=== PATIENT | male | born 1980 | race Caucasian/White ===

== ENCOUNTER 2016-04-11 16:07 | Emergency (ER) | payer BC, OTHER ==
[2016-04-11 16:17] VITALS: BP 176/102; PULSE 92; RESP 18; TEMP 98
[2016-04-11] MEDS ORDERED: IBUPROFEN 800 MG TAB PO STA (16:21)
--- NOTE | 2016-04-11 16:32 | ED ---
Upper Extremity HPI - General Chief Complaint: Extremity Injury, Upper Stated Complaint: Finger Injury Time Seen by Provider: 04/11/16 16:14 Source: patient Mode of arrival: ambulatory Limitations: no limitations - History of Present Illness Initial Comments: Patient is a 35-year-old right-handed white male with medical history significant for diabetes mellitus, hypertension, and diabetic peripheral neuropathy presenting to the emergency department with complaints of pain to his left index finger. Patient states onset of injury was approximately 24 hours ago. 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 Patient currently rates pain 5 out of 10, described as throbbing, constant, exacerbated with movement, somewhat relieved with rest. Patient reports chronic numbness to fingertips. Patient denies previous surgery or trauma to left index finger. 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 Patient denies treatment prior to arrival. No history of fevers , chills, nausea, vomiting, shortness of breath, chest pain, or abdominal pain. - Related Data Home Medications Medication Instructions Recorded Confirmed Insulin NPH Human Isophane 22 units SQ BID 07/14/14 07/16/15 [NovoLIN N] Insulin Regular, Human [NovoLIN R] 6 units SQ AC-TID 07/14/14 07/16/15 Benazepril HCl [Lotensin] 20 mg PO DAILY 07/16/15 07/16/15 Ergocalciferol (Vitamin D2) 50,000 unit PO QMONTH 07/16/15 07/16/15 [Drisdol] Gabapentin 800 mg PO QID 07/16/15 07/16/15 Glucagon Emergency Kit 1 dose IM ONCE PRN 07/16/15 07/16/15 Insulin Regular, Human [NovoLIN R] 0 unit SQ DIRECTED 07/16/15 07/16/15 Omeprazole 20 mg PO DAILY 07/16/15 07/16/15 traZODone HCL [Desyrel] 50 - 100 mg PO HS PRN 07/16/15 07/16/15 Previous Rx's Medication Instructions Recorded Ibuprofen [Motrin] 600 mg PO Q8HR PRN #30 tab 10/06/15 HYDROcodone/APAP 5-325MG [[place] 1 tab PO Q4HR PRN #12 tab 04/11/16 5-325] Allergies Allergy/AdvReac Type Severity Reaction Status Date / Time venom-honey bee Allergy Unknown Verified 04/11/16 16:17 [bee venom (honey bee)] Review of Systems ROS Statement: Those systems with pertinent positive or pertinent negative responses have been documented in the HPI. ROS Other: All systems not noted in ROS Statement are negative. Past Medical History Past Medical History: Diabetes Mellitus, Hyperlipidemia, Hypertension Additional Past Medical History / Comment(s): Multiple vitreous hemorrhages, cataracts, IDDM History of Any Multi-Drug Resistant Organisms: None Reported Additional Past Surgical History / Comment(s): Laser eye surgery; hip surgery Past Psychological History: No Psychological Hx Reported Smoking Status: Current every day smoker Past Alcohol Use History: None Reported Past Drug Use History: None Reported General Exam Limitations: no limitations General appearance: alert, in no apparent distress Head exam: Present: atraumatic, normocephalic, normal inspection Eye exam: Present: normal appearance ENT exam: Present: normal exam, mucous membranes moist Neck exam: Present: normal inspection, full ROM. Absent: tenderness, meningismus, lymphadenopathy Respiratory exam: Present: normal lung sounds bilaterally. Absent: respiratory distress, wheezes, rales, rhonchi, stridor Cardiovascular Exam: Present: regular rate, normal rhythm, normal heart sounds. Absent: systolic murmur, diastolic murmur, rubs, gallop, clicks GI/Abdominal exam: Present: soft, normal bowel sounds. Absent: distended, tenderness, guarding, rebound, rigid Left Elbow exam: Present: normal inspection, full ROM. Absent: tenderness, swelling Forearm Wrist exam: Present: normal inspection, full ROM. Absent: tenderness, swelling Hand Wrist exam: Present: tenderness, swelling, erythema, subungual hematoma, other (Distal phalanx of left index finger erythematous and swollen with small subungual hematoma to proximal nail). Absent: full ROM (Patient unable to bend distal phalanx of second index finger) Neuro motor exam: Present: wrist extension intact, thumb opposition intact, thumb IP flexion intact, thumb adduction intact, fingers 2-5 abduction intact Neurosensory exam: Present: 2-point discrimination, radial nerve intact, ulnar nerve intact, median nerve intact Vascular: Present: normal capillary refill, radial pulse, brachial pulse, ulnar pulse. Absent: vascular compromise, pulse deficit radial art, pulse deficit ulnar art, pulse deficit brachial art Neurological exam: Present: alert, oriented X3, CN II-XII intact Psychiatric exam: Present: normal affect, normal mood Skin exam: Present: warm, dry, intact, normal color. Absent: rash Course Vital Signs 04/11/16 16:14 Temperature 98.0 F Pulse Rate 92 Respiratory 18 Rate Blood Pressure 176/102 O2 Sat by Pulse 100 Oximetry Medical Decision Making - Medical Decision Making 1 mm bony density on the lateral aspect of the tuft of distal phalanx consistent with a tiny chip fracture. Subungual hematoma to left index finger. Subungual hematoma relieved with 18-gauge needle puncture. Finger splint applied to finger fracture. Patient started to follow-up with orthopedic service in a week. Patient agrees with treatment plan. Discharge instructions and return parameters reviewed. - Radiology Data Radiology results: report reviewed X-ray left index finger: 1 mm bony density on the lateral aspect of the tuft of distal phalanx consistent with a tiny chip fracture. No dislocation. Joint spaces are normal. Disposition Clinical Impression: Closed fracture of tuft of distal phalanx of finger, Subungual hematoma of finger of left hand Disposition: HOME SELF-CARE Condition: Good Instructions: Finger Fracture (ED) Additional Instructions: Continue to wear splint and follow-up with orthopedic physician in one week. Continue [place] or Motrin for pain. Please return to the emergency department if symptoms do not improve or get worse. Prescriptions: HYDROcodone/APAP 5-325MG [[place] 5-325] 1 tab PO Q4HR PRN #12 tab PRN Reason: Pain Referrals: Rasta David MD [Primary Care Provider] - 1-2 days Pacheco De La O MD [STAFF PHYSICIAN] - 1-2 days Time of Disposition: 16:50
--- NOTE | 2016-04-11 16:38 | XR ---
EXAMINATION TYPE: XR finger LT DATE OF EXAM: 04/11/2016 4:28 PM COMPARISON: NONE HISTORY: Pain TECHNIQUE: 3 views FINDINGS: There is a 1 mm bony density on the lateral aspect of the tuft of the distal phalanx consis tent with a tiny chip fracture. There is no dislocation. Joint spaces are normal. IMPRESSION: Small chip fracture of the distal phalanx.
== END 2016-04-11 17:30 | disposition home or self-care (01) ==
LOC: EC 16:07
DX: S62.631A Displaced fracture of distal phalanx of left index finger, initial encounter for closed fracture (principal); L60.8 Other nail disorders; W20.8XXA Other cause of strike by thrown, projected or falling object, initial encounter; Y99.0 Civilian activity done for income or pay; E11.42 Type 2 diabetes mellitus with diabetic polyneuropathy; I10 Essential (primary) hypertension; F17.200 Nicotine dependence, unspecified, uncomplicated; Z79.4 Long term (current) use of insulin; Z79.899 Other long term (current) drug therapy
CPT/HCPCS: 11740; 99283

== ENCOUNTER 2016-06-07 05:40 | Emergency (ER) | payer BC, OTHER ==
[2016-06-07] MEDS ORDERED: SODIUM CHLORIDE 0.9% 500 ML IV STA (05:43)
[2016-06-07] MEDS ORDERED: DIPH,PERTUS(ACELL)TETVAC-LF 0.5 ML VIAL IM ONE (05:43)
[2016-06-07] MEDS ORDERED: RX INFO: IV CONTRAST WAS GIVEN 1 EACH MISC MISCELLANE PRN (05:43)
[2016-06-07 05:46] LABS: Glucose,Whole Blood 80 mg/dL (75-99)
[2016-06-07 05:59] LABS: Basophils % (A) 1 %; CH 31.8; CHCM 35.4; Eosinophils # (A) 0.1 k/uL (0-0.7); Eosinophils % (A) 1 %; HCT 48.2 % (39.0-53.0); HDW 2.86; HGB 16.8 gm/dL (13.0-17.5); Luc # (Auto) 0.16; Luc % (Auto) 2; Lymphocytes # (A) 1.5 k/uL (1.0-4.8); Lymphocytes % (A) 22 %; MCH 31.4 pg (25.0-35.0); MCHC 34.9 g/dL (31.0-37.0); MCV 90.2 fL (80.0-100.0); Mean Platelet Volume 7.3; Monocytes # (A) 0.5 k/uL (0-1.0); Monocytes % (A) 7 %; Neutrophils # (A) 4.4 k/uL (1.3-7.7); Neutrophils % (A) 67 %; RBC 5.35 m/uL (4.30-5.90); RDW 13.1 % (11.5-15.5); WBC 6.5 k/uL (3.8-10.6); WBC (Perox) 6.47
[2016-06-07 06:07] LABS: ALT 27 U/L (21-72); AST 30 U/L (17-59); Alkaline Phosphatase 84 U/L (38-126); Amylase 34 U/L (30-110); Anion Gap 14 mmol/L; Blood Urea Nitrogen 12 mg/dL (9-20); Calcium 9.8 mg/dL (8.4-10.2); Carbon Dioxide 28 mmol/L (22-30); Chloride 105 mmol/L (98-107); Non-African American GFR(MDRD) >60 (>60 ml/min/1.73 sqM); Potassium 3.7 mmol/L (3.5-5.1); Sodium 147 mmol/L (137-145); Total Bilirubin 0.6 mg/dL (0.2-1.3); Total Protein 7.5 g/dL (6.3-8.2)
[2016-06-07 06:13] LABS: INR 0.9 (<1.1); Prothrombin Time 9.7 sec (9.0-12.0)
[2016-06-07 06:14] LABS: Alcohol 98 mg/dL; Glucose 42 mg/dL (74-99)
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
[2016-06-07 06:22] LABS: Partial Thromboplastin Time 21.2 sec (22.0-30.0)
[2016-06-07] MEDS ORDERED: THIAMINE 100 MG/ML 2 ML VIAL IM STA (06:23)
[2016-06-07 06:25] LABS: Creatine Kinase 197 U/L (55-170)
[2016-06-07 06:25] LABS: Appearance,Urine Clear (Clear); Bilirubin,Urine Negative (Negative); Glucose,Urine (UA) 4+ (Negative); Ketones,Urine Trace (Negative); Leukocyte Esterase,Urine Negative (Negative); Nitrite,Urine Negative (Negative); PH, Urine 6.5 (5.0-8.0); Particle Count 618; Protein,Urine 1+ (Negative); RBC,Urine <1 /hpf (0-5); Specific Gravity,Urine 1.019 (1.001-1.035); UA Billing (MACRO vs. MICRO) MICRO; WBC,Urine <1 /hpf (0-5)
[2016-06-07] MEDS: DEXTROSE 50%-WATER 50 ML SYRINGE IVP STA ×2 (06:25→07:05)
[2016-06-07] MEDS ORDERED: NALOXONE 0.4 MG/ML 1 ML VIAL IV STA ×2 (06:26→06:27)
[2016-06-07] MEDS ORDERED: NALOXONE 0.4 MG/ML 10 ML VIAL IVP STA (06:27)
[2016-06-07 06:38] LABS: Creatine Kinase MB 1.3 ng/mL (0.0-2.4); Troponin I <0.012 ng/mL (0.000-0.034)
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
[2016-06-07 07:03] LABS: Glucose,Whole Blood 20 mg/dL (75-99)
[2016-06-07 07:39] LABS: Glucose,Whole Blood 84 mg/dL (75-99)
[2016-06-07 08:23] LABS: Glucose,Whole Blood 25 mg/dL (75-99)
[2016-06-07 08:32] LABS: ABG PCO2 49 mmHg (35-45); ABG PH 7.27 (7.35-7.45); ABG PO2 134 mmHg (83-108)
[2016-06-07 08:33] LABS: ABG HCO3 22 mmol/L (21-25); ABG TCO2 23 mmol/L (19-24)
[2016-06-07 08:40] VITALS: BP 101/51; PULSE 100; RESP 14; TEMP 97.4
== END 2016-06-07 08:22 | disposition short-term general hospital (02) ==
LOC: EC 05:40
DX: S06.340A Traumatic hemorrhage of right cerebrum without loss of consciousness, initial encounter (principal); E11.649 Type 2 diabetes mellitus with hypoglycemia without coma; R41.82 Altered mental status, unspecified; R06.82 Tachypnea, not elsewhere classified; R00.0 Tachycardia, unspecified; I51.7 Cardiomegaly; F17.200 Nicotine dependence, unspecified, uncomplicated; I10 Essential (primary) hypertension; Z79.4 Long term (current) use of insulin; Z79.899 Other long term (current) drug therapy; Z91.030 Bee allergy status; Z23 Encounter for immunization; V47.5XXA Car driver injured in collision with fixed or stationary object in traffic accident, initial encounter; Y92.411 Interstate highway as the place of occurrence of the external cause
CPT/HCPCS: 99291; 99292; 31500; 96374; 96375; 96376; 96372; 90471; 36415; 94002; 93005; 86900; 86901; 80053; 82150; 82550; 82553; 82805; 83690; 84484; 85025; 85610; 85730; 86850; 81001; 80306; 80320; 71010; 72170; 72125; 70450; 71260; 74177; 90715; J2310 ×2; J3411; Q9967

== ENCOUNTER 2016-06-24 09:41 | Emergency (ER) | payer BC, OTHER ==
[2016-06-24 10:06] VITALS: BP 144/85; PULSE 105; RESP 18; TEMP 98.2
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
--- NOTE | 2016-06-24 11:15 | XR ---
PA chest x-ray and right RIBS HISTORY: Trauma and pain Frontal view of the chest, 4 views of the right ribs correlated to prior chest x-ray second of June 2016 There is improvement in lung aeration. No evident pneumothorax. No displaced rib fracture evident. No pleural effusion. Cardiomediastinal silhouette within normal limits. Pulmonary vascularity and graham are normal. IMPRESSION: No evident displaced rib fracture, consider follow-up bone scan as indicated if occult fr acture is suspected clinically
--- NOTE | 2016-06-24 11:19 | XR ---
Right shoulder HISTORY: Trauma and pain 3 views of the right shoulder No comparisons There is no evident pneumothorax or pleural effusion. Bone mineralization, joint spaces and alignment are maintained. IMPRESSION: No fracture or dislocation.
--- NOTE | 2016-06-24 11:20 | XR ---
Right humerus HISTORY: Trauma and pain 2 views of the right humerus correlated to right shoulder same date, there are 2 images Bone mineralization, joint spaces and alignment are maintained IMPRESSION: No fracture or dislocation.
== END 2016-06-24 12:00 | disposition home or self-care (01) ==
LOC: EC 09:41
DX: S43.101A Unspecified dislocation of right acromioclavicular joint, initial encounter (principal); S60.511A Abrasion of right hand, initial encounter; R07.89 Other chest pain; I10 Essential (primary) hypertension; E11.9 Type 2 diabetes mellitus without complications; F17.200 Nicotine dependence, unspecified, uncomplicated; Z79.4 Long term (current) use of insulin; Z79.899 Other long term (current) drug therapy; Z91.030 Bee allergy status; V18.4XXA Pedal cycle driver injured in noncollision transport accident in traffic accident, initial encounter; Y92.410 Unspecified street and highway as the place of occurrence of the external cause; Y93.55 Activity, bike riding
CPT/HCPCS: 99283

== ENCOUNTER 2016-08-12 16:45 | Emergency (ER) | payer BC, OTHER ==
[2016-08-12 17:18] VITALS: BP 161/88; PULSE 112; RESP 20; TEMP 98.3
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
--- NOTE | 2016-08-12 18:13 | XR ---
EXAMINATION TYPE: XR hand complete RT DATE OF EXAM: 08/12/2016 COMPARISON: NONE HISTORY: Pain TECHNIQUE: 3 views FINDINGS: I see no fracture nor dislocation. Joint spaces are fairly normal. There are no erosions. The metacar pals are intact. IMPRESSION: Negative right hand exam. There is slight deformity of the base of the distal phalanx of the little finger that could relate to an old healed fracture.
== END 2016-08-12 18:12 | disposition home or self-care (01) ==
LOC: EC 16:45
DX: S60.221A Contusion of right hand, initial encounter (principal); E11.9 Type 2 diabetes mellitus without complications; E78.5 Hyperlipidemia, unspecified; I10 Essential (primary) hypertension; F17.200 Nicotine dependence, unspecified, uncomplicated; Z79.4 Long term (current) use of insulin; Z79.899 Other long term (current) drug therapy; Z91.030 Bee allergy status; W51.XXXA Accidental striking against or bumped into by another person, initial encounter
CPT/HCPCS: 99283

== ENCOUNTER 2017-10-27 20:06 | Emergency (ER) | payer OTHER ==
[2017-10-27 20:26] LABS: Glucose,Whole Blood 42 mg/dL (75-99)
[2017-10-27 20:26] LABS: Glucose,Whole Blood 51 mg/dL (75-99)
[2017-10-27] MEDS ORDERED: DEXTROSE 50%-WATER 50 ML SYRINGE IVP STA ×2 (20:26→23:44)
[2017-10-27 20:39] LABS: Basophils # (A) 0.1 k/uL (0-0.2); Basophils % (A) 0 %; Eosinophils # (A) 0.1 k/uL (0-0.7); Eosinophils % (A) 0 %; HCT 44.2 % (39.0-53.0); HGB 14.5 gm/dL (13.0-17.5); Lymphocytes # (A) 3.1 k/uL (1.0-4.8); Lymphocytes % (A) 21 %; MCH 30.1 pg (25.0-35.0); MCHC 32.9 g/dL (31.0-37.0); MCV 91.4 fL (80.0-100.0); Mean Platelet Volume 7.2; Monocytes # (A) 0.9 k/uL (0-1.0); Monocytes % (A) 7 %; Neutrophils % (A) 70 %; Platelet Count 318 k/uL (150-450); RBC 4.83 m/uL (4.30-5.90); RDW 13.4 % (11.5-15.5); WBC 14.3 k/uL (3.8-10.6)
[2017-10-27 20:44] LABS: Glucose,Whole Blood 163 mg/dL (75-99)
[2017-10-27] MEDS ORDERED: MORPHINE SULFATE 4 MG/ML SYRINGE IVP STA ×2 (20:47→21:43)
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
[2017-10-27 20:51] LABS: ALT 45 U/L (21-72); AST 41 U/L (17-59); Albumin 4.8 g/dL (3.5-5.0); Alcohol <10 mg/dL; Alkaline Phosphatase 61 U/L (38-126); Anion Gap 12 mmol/L; Blood Urea Nitrogen 25 mg/dL (9-20); Calcium 10.5 mg/dL (8.4-10.2); Carbon Dioxide 26 mmol/L (22-30); Chloride 101 mmol/L (98-107); Lipase 21 U/L (23-300); Potassium 4.3 mmol/L (3.5-5.1); Sodium 139 mmol/L (137-145); Total Bilirubin 0.6 mg/dL (0.2-1.3); Total Protein 7.4 g/dL (6.3-8.2)
[2017-10-27 20:52] LABS: Creatine Kinase 227 U/L (55-170)
[2017-10-27 20:57] LABS: Prothrombin Time 9.8 sec (9.0-12.0)
[2017-10-27] MEDS ORDERED: ceFAZolin IN SWFI 2 GM/20 ML SYRINGE IVP STA (20:59)
[2017-10-27 21:00] LABS: Glucose 46 mg/dL (74-99)
[2017-10-27] MEDS ORDERED: DEXTROSE 5%-0.45% NACL 1,000 ML IV ONE (21:00)
[2017-10-27 21:05] LABS: Creatine Kinase MB 2.1 ng/mL (0.0-2.4); Troponin I <0.012 ng/mL (0.000-0.034)
[2017-10-27 21:17] LABS: Partial Thromboplastin Time 19.2 sec (22.0-30.0)
[2017-10-27 21:53] LABS: Glucose,Whole Blood 104 mg/dL (75-99)
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
--- NOTE | 2017-10-27 22:23 | XR ---
EXAMINATION TYPE: XR elbow complete RT DATE OF EXAM: 10/27/2017 COMPARISON: NONE HISTORY: Elbow pain TECHNIQUE: 5 views FINDINGS: I see no fracture nor dislocation. Joint spaces are fairly normal. There is no sign of elbo w joint effusion. IMPRESSION: Negative right elbow exam.
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
[2017-10-27] MEDS ORDERED: SODIUM CHLORIDE 0.9% 1,000 ML IV STA (23:07)
[2017-10-27] MEDS ORDERED: SODIUM CHLORIDE 0.9% 500 ML 500 ML IV STA (23:07)
[2017-10-27] MEDS ORDERED: HYDROcodone/APAP 5-325MG 1 EACH TAB PO STA (23:08)
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
[2017-10-27 23:21] LABS: Glucose,Whole Blood 53 mg/dL (75-99)
[2017-10-28 00:11] LABS: Glucose,Whole Blood 118 mg/dL (75-99)
[2017-10-28 00:11] LABS: Glucose,Whole Blood 59 mg/dL (75-99)
[2017-10-28 00:11] LABS: Glucose,Whole Blood 51 mg/dL (75-99)
[2017-10-28 00:13] LABS: Amylase 54 U/L (30-110)
[2017-10-28 00:20] VITALS: BP 115/59; PULSE 128; RESP 18; TEMP 97.9
== END 2017-10-28 00:06 | disposition home or self-care (01) ==
LOC: EC 20:06
DX: S40.211A Abrasion of right shoulder, initial encounter (principal); M79.601 Pain in right arm; E78.5 Hyperlipidemia, unspecified; I10 Essential (primary) hypertension; E11.36 Type 2 diabetes mellitus with diabetic cataract; F17.200 Nicotine dependence, unspecified, uncomplicated; Z79.4 Long term (current) use of insulin; Z79.899 Other long term (current) drug therapy; Z91.030 Bee allergy status; Z53.20 Procedure and treatment not carried out because of patient's decision for unspecified reasons; V20.4XXA Motorcycle driver injured in collision with pedestrian or animal in traffic accident, initial encounter; Y92.410 Unspecified street and highway as the place of occurrence of the external cause
CPT/HCPCS: 99285 ×2; 96374 ×2; 96375 ×3; 96376 ×3; 96361 ×2; 36415; 93005; 86900; 86901; 80053; 82150; 82550; 82553; 83690; 84484; 85025; 85610; 85730; 86850; 73562; 72170; 73030; 73080; 71045; 72125; 70450; 71260; 74177; L0120; G0480; J2270; J0690; Q9967; 80320

== ENCOUNTER 2017-10-29 10:45 | Inpatient (IN) | payer OTHER ==
[2017-10-29] MEDS ORDERED: VANCOMYCIN IV PER PHARMACY 1 EACH MISC MISCELLANE PRN ×2 (11:29→15:49)
[2017-10-29] MEDS ORDERED: PIPERACILLIN-TAZOBACTAM 3.375 GM in DEXTROSE/WATER 1 50ML.BAG IVPB STA (11:31)
[2017-10-29] MEDS ORDERED: ONDANSETRON 4 MG/2 ML VIAL IVP STA (11:32)
[2017-10-29] MEDS ORDERED: MORPHINE SULFATE 2 MG/ML SYRINGE IVP STA (11:32)
[2017-10-29] MEDS ORDERED: SODIUM CHLORIDE 0.9% 1,000 ML IV STA ×2 (11:32)
[2017-10-29] MEDS ORDERED: DIPH,PERTUS(ACELL)TETVAC-LF 0.5 ML VIAL IM ONE (11:39)
[2017-10-29] MEDS ORDERED: VANCOMYCIN 1,750 MG in SODIUM CHLORIDE 0.9% 500 ML IVPB ONE (12:00)
[2017-10-29 12:12] LABS: Basophils % (A) 0 %; Eosinophils % (A) 0 %; HCT 44.9 % (39.0-53.0); HGB 14.4 gm/dL (13.0-17.5); Lymphocytes # (A) 1.1 k/uL (1.0-4.8); Lymphocytes % (A) 11 %; MCH 29.9 pg (25.0-35.0); MCHC 32.2 g/dL (31.0-37.0); Mean Platelet Volume 7.2; Monocytes # (A) 0.6 k/uL (0-1.0); Monocytes % (A) 6 %; Neutrophils # (A) 8.2 k/uL (1.3-7.7); Neutrophils % (A) 81 %; Platelet Count 215 k/uL (150-450); RBC 4.83 m/uL (4.30-5.90); RDW 13.1 % (11.5-15.5)
[2017-10-29 12:22] LABS: ALT 35 U/L (21-72); AST 32 U/L (17-59); Albumin 4.9 g/dL (3.5-5.0); Alkaline Phosphatase 70 U/L (38-126); Amylase 46 U/L (30-110); Anion Gap 11 mmol/L; Blood Urea Nitrogen 25 mg/dL (9-20); Calcium 9.8 mg/dL (8.4-10.2); Carbon Dioxide 27 mmol/L (22-30); Chloride 99 mmol/L (98-107); Glucose 154 mg/dL (74-99); Lipase <10 U/L (23-300); Potassium 4.9 mmol/L (3.5-5.1); Sodium 137 mmol/L (137-145); Total Protein 7.7 g/dL (6.3-8.2)
[2017-10-29 12:32] LABS: Appearance,Urine Clear (Clear); Bilirubin,Urine Negative (Negative); Blood,Urine Negative (Negative); Color,Urine Yellow; Glucose,Urine (UA) 2+ (Negative); Leukocyte Esterase,Urine Negative (Negative); Mucus,Urine Rare /hpf; Nitrite,Urine Negative (Negative); PH, Urine 5.5 (5.0-8.0); Protein,Urine 1+ (Negative); RBC,Urine <1 /hpf (0-5); Specific Gravity,Urine 1.027 (1.001-1.035); WBC,Urine 1 /hpf (0-5)
[2017-10-29 12:33] LABS: Ketones,Urine 2+ (Negative)
--- NOTE | 2017-10-29 12:52 | XR ---
Right forearm and right hand HISTORY: Pain, swelling and infection 2 views of the right forearm, 3 views of the right hand submitted. No comparisons Bone mineralization, joint spaces and alignment are maintained. No radiopaque foreign body. Soft tiss ue swelling suspected along the forearm. No evident periostitis to suggest osteomyelitis. Probable pr ominent vein noted within the soft tissues at the level of the proximal forearm. IMPRESSION: Correlate for cellulitis, possible dilated vein.
[2017-10-29] MEDS ORDERED: SODIUM CHLORIDE 0.9% 1,000 ML IV ONE (14:18)
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
[2017-10-29] MEDS ORDERED: GLUCAGON EMERGENCY 1 MG KIT IM PRN (14:20)
[2017-10-29] MEDS ORDERED: MORPHINE SULFATE 4 MG/ML SYRINGE IVP PRN (14:22)
[2017-10-29] MEDS ORDERED: HYDROcodone/APAP 5-325MG 1 EACH TAB PO PRN (15:44)
[2017-10-29] MEDS ORDERED: ACETAMINOPHEN TAB 500 MG TAB PO PRN (15:44)
[2017-10-29] MEDS ORDERED: TEMAZEPAM 15 MG CAP PO PRN (15:44)
[2017-10-29] MEDS ORDERED: ALPRAZolam 0.25 MG TAB PO PRN (15:44)
[2017-10-29 16:50] LABS: Glucose,Whole Blood 133 mg/dL (75-99)
[2017-10-29] MEDS: MORPHINE ORAL SOLN 10 MG/5 ML CUP PO PRN ×2 (17:04→22:26)
[2017-10-29] MEDS: GABAPENTIN 400 MG CAP PO SCH ×2 (18:08→22:01)
[2017-10-29 18:12] LABS: Glucose,Whole Blood 106 mg/dL (75-99)
[2017-10-29] MEDS: INSULIN ASPART 100 UNIT/ML 1 ML 10 ML VIAL SQ SCH ×3 (18:15→21:48)
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
--- NOTE | 2017-10-29 18:26 | CT ---
EXAMINATION TYPE: CT upper extremity RT w con DATE OF EXAM: 10/29/2017 COMPARISON: None HISTORY: Right elbow swelling and redness CT DLP: 338 mGycm Automated exposure control for dose reduction was used. CONTRAST: Performed with IV Contrast, patient injected with 100 mL of Isovue 300. FINDINGS: Multiple axial sections were obtained from the distal humerus to the wrist joint with no contrast. FINDINGS: The elbow joint is intact. There is no sign of elbow joint effusion. The radius and ulna appear intac t. There is no evidence of a fracture. Carpal bones appear intact. There is subcutaneous edema around the elbow and lower humerus. I see no discrete fluid collection. There is more soft tissue swelling posteriorly. IMPRESSION: SUBCUTANEOUS EDEMA AROUND THE ELBOW AND DISTAL HUMERUS. THERE IS FLUID POSTERIORLY THAT COULD RELATE TO OLECRANON BURSITIS. I WOULD ALSO CONSIDER CELLULITIS. NO ABSCESS SEEN. NO FRACTURE. NO EVIDENCE OF OSTEOMYELITIS.
[2017-10-29] MEDS: PIPERACILLIN-TAZOBACTAM 3.375 GM in DEXTROSE/WATER 1 50ML.BAG IVPB SCH (19:44)
[2017-10-29 21:04] LABS: Glucose,Whole Blood 68 mg/dL (75-99)
[2017-10-29 21:41] LABS: Glucose,Whole Blood 57 mg/dL (75-99)
[2017-10-29] MEDS: HEPARIN SODIUM,PORCINE 5,000 UNIT/ML 1 ML VIAL SQ SCH (22:01)
[2017-10-29] MEDS: traMADol 50 MG TAB PO SCH (22:01)
[2017-10-29 22:12] LABS: Glucose,Whole Blood 69 mg/dL (75-99)
[2017-10-29 22:31] LABS: Glucose,Whole Blood 112 mg/dL (75-99)
[2017-10-30 01:03] LABS: Hemoglobin A1C 7.8 % (4.0-6.0)
[2017-10-30] MEDS: MORPHINE ORAL SOLN 10 MG/5 ML CUP PO PRN ×5 (03:30→23:06)
[2017-10-30] MEDS: PIPERACILLIN-TAZOBACTAM 3.375 GM in DEXTROSE/WATER 1 50ML.BAG IVPB SCH ×3 (03:30→19:27)
[2017-10-30 03:52] LABS: Glucose,Whole Blood 216 mg/dL (75-99)
[2017-10-30] MEDS ORDERED: PANTOPRAZOLE 40 MG TABLET PO SCH (07:30)
[2017-10-30 07:32] LABS: Basophils % (A) 0 %; Eosinophils # (A) 0.1 k/uL (0-0.7); Eosinophils % (A) 1 %; HCT 34.5 % (39.0-53.0); HGB 12.1 gm/dL (13.0-17.5); Lymphocytes # (A) 1.5 k/uL (1.0-4.8); Lymphocytes % (A) 21 %; MCH 32.5 pg (25.0-35.0); MCV 92.7 fL (80.0-100.0); Mean Platelet Volume 7.2; Monocytes # (A) 0.5 k/uL (0-1.0); Monocytes % (A) 7 %; Neutrophils % (A) 69 %; Platelet Count 181 k/uL (150-450); RBC 3.73 m/uL (4.30-5.90); RDW 12.9 % (11.5-15.5); WBC 7.3 k/uL (3.8-10.6)
[2017-10-30 07:39] LABS: Glucose,Whole Blood 230 mg/dL (75-99)
[2017-10-30 07:46] LABS: Anion Gap 9 mmol/L; Blood Urea Nitrogen 20 mg/dL (9-20); Calcium 8.7 mg/dL (8.4-10.2); Carbon Dioxide 23 mmol/L (22-30); Chloride 102 mmol/L (98-107); Glucose 219 mg/dL (74-99); Potassium 5.1 mmol/L (3.5-5.1); Sodium 134 mmol/L (137-145)
[2017-10-30] MEDS: INSULIN ASPART 100 UNIT/ML 1 ML 10 ML VIAL SQ SCH ×7 (07:58→20:48)
[2017-10-30] MEDS: VANCOMYCIN 1,500 MG in SODIUM CHLORIDE 0.9% 250 ML IVPB SCH ×5 (08:07→23:30)
[2017-10-30] MEDS: GABAPENTIN 400 MG CAP PO SCH ×4 (08:08→21:58)
[2017-10-30] MEDS: FAMOTIDINE 20 MG TAB PO SCH (08:08)
[2017-10-30] MEDS: HEPARIN SODIUM,PORCINE 5,000 UNIT/ML 1 ML VIAL SQ SCH ×2 (08:08→20:46)
[2017-10-30] MEDS: ATORVASTATIN 80 MG TAB PO SCH (08:08)
[2017-10-30] MEDS: traMADol 50 MG TAB PO SCH ×2 (08:09→20:47)
[2017-10-30] MEDS: LISINOPRIL 20 MG TAB PO SCH (08:09)
[2017-10-30] MEDS: INSULIN DETEMIR 100 UNIT/ML 10 ML VIAL SQ SCH (09:28)
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
[2017-10-30 12:24] LABS: Glucose,Whole Blood 41 mg/dL (75-99)
[2017-10-30 12:59] LABS: Glucose,Whole Blood 76 mg/dL (75-99)
[2017-10-30 17:17] LABS: Glucose,Whole Blood 175 mg/dL (75-99)
[2017-10-30 20:33] LABS: Glucose,Whole Blood 72 mg/dL (75-99)
[2017-10-30] MEDS ORDERED: IBUPROFEN 800 MG TAB PO PRN (20:33)
[2017-10-30 22:44] LABS: Glucose,Whole Blood 85 mg/dL (75-99)
[2017-10-30] MEDS ORDERED: VANCOMYCIN TROUGH DUE 1 EACH MISC MISCELLANE ONE (23:00)
[2017-10-31] MEDS: PIPERACILLIN-TAZOBACTAM 3.375 GM in DEXTROSE/WATER 1 50ML.BAG IVPB SCH ×3 (03:22→19:48)
[2017-10-31 07:19] LABS: Glucose,Whole Blood 130 mg/dL (75-99)
[2017-10-31] MEDS: INSULIN ASPART 100 UNIT/ML 1 ML 10 ML VIAL SQ SCH ×8 (07:29→21:43)
[2017-10-31] MEDS: VANCOMYCIN 1,500 MG in SODIUM CHLORIDE 0.9% 250 ML IVPB SCH ×3 (08:12→23:19)
[2017-10-31] MEDS: GABAPENTIN 400 MG CAP PO SCH ×4 (08:13→21:44)
[2017-10-31] MEDS: HEPARIN SODIUM,PORCINE 5,000 UNIT/ML 1 ML VIAL SQ SCH ×2 (08:13→21:43)
[2017-10-31] MEDS: ATORVASTATIN 80 MG TAB PO SCH (08:13)
[2017-10-31] MEDS: LISINOPRIL 20 MG TAB PO SCH (08:13)
[2017-10-31] MEDS: FAMOTIDINE 20 MG TAB PO SCH (08:13)
[2017-10-31] MEDS: INSULIN DETEMIR 100 UNIT/ML 10 ML VIAL SQ SCH (08:16)
[2017-10-31] MEDS: MORPHINE ORAL SOLN 10 MG/5 ML CUP PO PRN ×5 (08:16→23:19)
[2017-10-31] MEDS: traMADol 50 MG TAB PO SCH ×2 (08:17→21:44)
[2017-10-31 08:38] LABS: Basophils % (A) 1 %; Eosinophils # (A) 0.1 k/uL (0-0.7); Eosinophils % (A) 1 %; HCT 38.7 % (39.0-53.0); HGB 12.9 gm/dL (13.0-17.5); Lymphocytes # (A) 1.3 k/uL (1.0-4.8); Lymphocytes % (A) 20 %; MCHC 33.4 g/dL (31.0-37.0); MCV 92.6 fL (80.0-100.0); Mean Platelet Volume 7.2; Monocytes # (A) 0.4 k/uL (0-1.0); Monocytes % (A) 6 %; Neutrophils # (A) 4.7 k/uL (1.3-7.7); Neutrophils % (A) 72 %; Platelet Count 217 k/uL (150-450); RBC 4.18 m/uL (4.30-5.90); RDW 12.7 % (11.5-15.5); WBC 6.6 k/uL (3.8-10.6)
[2017-10-31 08:52] LABS: Anion Gap 11 mmol/L; Blood Urea Nitrogen 15 mg/dL (9-20); Calcium 9.3 mg/dL (8.4-10.2); Carbon Dioxide 26 mmol/L (22-30); Chloride 100 mmol/L (98-107); Glucose 153 mg/dL (74-99); Potassium 4.7 mmol/L (3.5-5.1); Sodium 137 mmol/L (137-145)
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
[2017-10-31 12:00] LABS: Glucose,Whole Blood 81 mg/dL (75-99)
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
[2017-10-31 17:02] LABS: Glucose,Whole Blood 161 mg/dL (75-99)
[2017-10-31 20:14] LABS: Glucose,Whole Blood 44 mg/dL (75-99)
[2017-10-31 21:43] LABS: Glucose,Whole Blood 155 mg/dL (75-99)
[2017-11-01] MEDS: PIPERACILLIN-TAZOBACTAM 3.375 GM in DEXTROSE/WATER 1 50ML.BAG IVPB SCH ×3 (04:30→19:27)
[2017-11-01] MEDS: MORPHINE ORAL SOLN 10 MG/5 ML CUP PO PRN ×4 (04:30→19:52)
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
[2017-11-01 07:02] LABS: Basophils % (A) 1 %; Eosinophils # (A) 0.1 k/uL (0-0.7); Eosinophils % (A) 2 %; HCT 37.5 % (39.0-53.0); HGB 12.1 gm/dL (13.0-17.5); Lymphocytes # (A) 1.4 k/uL (1.0-4.8); Lymphocytes % (A) 21 %; MCHC 32.2 g/dL (31.0-37.0); MCV 93.1 fL (80.0-100.0); Mean Platelet Volume 6.9; Monocytes # (A) 0.5 k/uL (0-1.0); Monocytes % (A) 7 %; Neutrophils # (A) 4.8 k/uL (1.3-7.7); Neutrophils % (A) 68 %; Platelet Count 205 k/uL (150-450); RBC 4.03 m/uL (4.30-5.90); RDW 12.7 % (11.5-15.5)
[2017-11-01 07:02] LABS: Glucose,Whole Blood 186 mg/dL (75-99)
[2017-11-01 07:14] LABS: Anion Gap 8 mmol/L; Blood Urea Nitrogen 15 mg/dL (9-20); Calcium 9.1 mg/dL (8.4-10.2); Carbon Dioxide 27 mmol/L (22-30); Chloride 101 mmol/L (98-107); Glucose 192 mg/dL (74-99); Potassium 4.8 mmol/L (3.5-5.1); Sodium 136 mmol/L (137-145)
[2017-11-01] MEDS: INSULIN ASPART 100 UNIT/ML 1 ML 10 ML VIAL SQ SCH ×8 (07:48→18:18)
[2017-11-01] MEDS: INSULIN DETEMIR 100 UNIT/ML 10 ML VIAL SQ SCH (07:49)
[2017-11-01] MEDS: VANCOMYCIN 1,500 MG in SODIUM CHLORIDE 0.9% 250 ML IVPB SCH ×3 (09:09→23:18)
[2017-11-01] MEDS: FAMOTIDINE 20 MG TAB PO SCH (09:09)
[2017-11-01] MEDS: LISINOPRIL 20 MG TAB PO SCH (09:10)
[2017-11-01] MEDS: HEPARIN SODIUM,PORCINE 5,000 UNIT/ML 1 ML VIAL SQ SCH ×2 (09:10→21:35)
[2017-11-01] MEDS: GABAPENTIN 400 MG CAP PO SCH ×4 (09:10→21:36)
[2017-11-01] MEDS: ATORVASTATIN 80 MG TAB PO SCH ×2 (09:11→09:24)
[2017-11-01] MEDS: traMADol 50 MG TAB PO SCH ×2 (09:22→21:35)
[2017-11-01 10:33] LABS: Glucose,Whole Blood 36 mg/dL (75-99)
[2017-11-01 10:37] LABS: Glucose,Whole Blood 36 mg/dL (75-99)
[2017-11-01 10:53] LABS: Glucose,Whole Blood 50 mg/dL (75-99)
[2017-11-01 11:10] LABS: Glucose,Whole Blood 35 mg/dL (75-99)
[2017-11-01 12:29] LABS: Glucose,Whole Blood 64 mg/dL (75-99)
[2017-11-01 15:36] LABS: Glucose,Whole Blood 292 mg/dL (75-99)
[2017-11-01 17:52] LABS: Glucose,Whole Blood 322 mg/dL (75-99)
[2017-11-02 00:22] LABS: Glucose,Whole Blood 389 mg/dL (75-99)
[2017-11-02] MEDS ORDERED: INSULIN ASPART 100 UNIT/ML 1 ML 10 ML VIAL SQ ONE (00:36)
[2017-11-02] MEDS: PIPERACILLIN-TAZOBACTAM 3.375 GM in DEXTROSE/WATER 1 50ML.BAG IVPB SCH (04:25)
[2017-11-02] MEDS ORDERED: VANCOMYCIN TROUGH DUE 1 EACH MISC MISCELLANE ONE (07:00)
[2017-11-02 07:21] LABS: Glucose,Whole Blood 332 mg/dL (75-99)
[2017-11-02 07:26] LABS: Basophils % (A) 1 %; Eosinophils # (A) 0.1 k/uL (0-0.7); Eosinophils % (A) 2 %; HCT 37.4 % (39.0-53.0); HGB 12.5 gm/dL (13.0-17.5); Lymphocytes # (A) 1.2 k/uL (1.0-4.8); Lymphocytes % (A) 16 %; MCHC 33.6 g/dL (31.0-37.0); MCV 92.4 fL (80.0-100.0); Mean Platelet Volume 7.3; Monocytes # (A) 0.6 k/uL (0-1.0); Monocytes % (A) 8 %; Neutrophils # (A) 5.5 k/uL (1.3-7.7); Neutrophils % (A) 72 %; Platelet Count 225 k/uL (150-450); RBC 4.04 m/uL (4.30-5.90); RDW 12.9 % (11.5-15.5); WBC 7.6 k/uL (3.8-10.6)
[2017-11-02 07:36] LABS: Anion Gap 12 mmol/L; Blood Urea Nitrogen 19 mg/dL (9-20); Calcium 9.2 mg/dL (8.4-10.2); Carbon Dioxide 25 mmol/L (22-30); Chloride 97 mmol/L (98-107); Glucose 323 mg/dL (74-99); Potassium 5.4 mmol/L (3.5-5.1); Sodium 134 mmol/L (137-145)
[2017-11-02] MEDS: INSULIN ASPART 100 UNIT/ML 1 ML 10 ML VIAL SQ SCH ×2 (08:30→08:31)
[2017-11-02] MEDS: INSULIN DETEMIR 100 UNIT/ML 10 ML VIAL SQ SCH (08:32)
[2017-11-02] MEDS: GABAPENTIN 400 MG CAP PO SCH (09:22)
[2017-11-02] MEDS: HEPARIN SODIUM,PORCINE 5,000 UNIT/ML 1 ML VIAL SQ SCH (09:23)
[2017-11-02] MEDS: FAMOTIDINE 20 MG TAB PO SCH (09:25)
[2017-11-02] MEDS: traMADol 50 MG TAB PO SCH (09:26)
[2017-11-02] MEDS: ATORVASTATIN 80 MG TAB PO SCH (09:28)
[2017-11-02] MEDS: LISINOPRIL 20 MG TAB PO SCH (09:30)
[2017-11-02] MEDS: VANCOMYCIN 1,500 MG in SODIUM CHLORIDE 0.9% 250 ML IVPB SCH (09:33)
[2017-11-02] MEDS: MORPHINE ORAL SOLN 10 MG/5 ML CUP PO PRN (09:39)
[2017-11-02 11:06] VITALS: BP 125/80; RESP 14; TEMP 98.3
[2017-11-02 11:36] VITALS: PULSE 98
--- NOTE | 2017-11-02 12:41 | PN ---
PROGRESS NOTE DATE OF SERVICE: 11/02/2017 REASON FOR FOLLOWUP: Right upper extremity cellulitis. INTERVAL HISTORY: The patient is currently afebrile. He is breathing comfortably. Denies having any chest pain, shortness of breath or cough. No abdominal pain. Overall swelling right has improved. PHYSICAL EXAMINATION: On examination, blood pressure is 125/80 with a pulse of 112, temperature 98.3. He is 95% on room air. General description is a middle-aged male lying in bed in no distress. RESPIRATORY SYSTEM: Unlabored breathing, clear to auscultation anteriorly. HEART: S1, S2, regular rate and rhythm. ABDOMEN: Soft, no tenderness. Right arm swelling has improved, no drainage. LABS: White count 7.6. BUN of 19, creatinine 1.02. DIAGNOSTIC IMPRESSION AND PLAN: Patient with right upper extremity cellulitis. The patient did have diffuse swelling and redness. Culture has been negative. Plan to finish therapy with oral Keflex 500 mg q.i.d. for 10 days with close outpatient followup. MMODL / IJN: [id number] /
[2017-11-02] MEDS ORDERED: CEPHALEXIN 250 MG CAP PO SCH (13:00)
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
--- NOTE | 2017-11-02 20:29 | PN ---
PROGRESS NOTE DATE OF SERVICE: 11/01/2017 CHIEF COMPLAINT: Infected abrasions right arm and uncontrolled insulin-dependent diabetes mellitus. HISTORY OF PRESENT ILLNESS: This gentleman is feeling well and has had no further difficulty with infection regarding abrasions right arm. Blood sugars were uncontrolled. The patient is being very uncooperative and insists on deciding when his Accu-Cheks will be done and how much insulin he will get. PHYSICAL EXAM: Chest is clear. Cardiac exam is normal. Abdomen is soft, nontender. IMPRESSION: 1. Infected abrasion in the right arm. 2. Uncontrolled diabetes. PLAN: Increase activity and if the arm continues to improve, he will go home tomorrow. MMODL / IJN: [id number] /
[2017-11-02] MEDS ORDERED: VANCOMYCIN 1,500 MG in SODIUM CHLORIDE 0.9% 250 ML IVPB SCH (21:00)
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
== END 2017-11-02 11:55 | disposition home or self-care (01) | DRG 603 ==
LOC: EC 10:45 → 5MS5E 14:18
PROVIDERS: ADMIT Family Medicine; ATTEND Family Medicine
DX: L03.113 Cellulitis of right upper limb (principal); S41.111D Laceration without foreign body of right upper arm, subsequent encounter; V00-Y99 External causes of morbidity; S80.212D Abrasion, left knee, subsequent encounter; S80.211D Abrasion, right knee, subsequent encounter; S60.511D Abrasion of right hand, subsequent encounter; S50.312D Abrasion of left elbow, subsequent encounter; F17.200 Nicotine dependence, unspecified, uncomplicated; E10.40 Type 1 diabetes mellitus with diabetic neuropathy, unspecified; E10.65 Type 1 diabetes mellitus with hyperglycemia; E78.5 Hyperlipidemia, unspecified; I10 Essential (primary) hypertension; K21.9 Gastro-esophageal reflux disease without esophagitis; M70.21 Olecranon bursitis, right elbow; Y93.55 Activity, bike riding; Z79.4 Long term (current) use of insulin; M19.90 Unspecified osteoarthritis, unspecified site; Z81.1 Family history of alcohol abuse and dependence; Z98.42 Cataract extraction status, left eye; Z79.899 Other long term (current) drug therapy; Z91.030 Bee allergy status
CPT/HCPCS: 36415; 80048; 80053; 80202; 81001; 82150; 83036; 83605; 83690; 85025; 87040; 87070; 87075; 87086; 87205; 90471; 90715; 96365; 96366; 96375; 99284

== ENCOUNTER 2018-06-03 17:32 | Emergency (ER) | payer OTHER ==
[2018-06-03 17:41] VITALS: BP 109/64; PULSE 105; RESP 18; TEMP 98.3
[2018-06-03] MEDS ORDERED: PROPARACAINE 0.5% OPHTH DROPS 15 ML BTL BOTH EYES STA (18:32)
--- NOTE | 2018-06-03 19:03 | ED ---
Eye Problem HPI - General Chief complaint: Eye Problems Stated complaint: chemical in eye-[facility] Time Seen by Provider: 06/03/18 17:46 Source: patient Mode of arrival: ambulatory Limitations: no limitations - History of Present Illness Initial comments: 38yo male presenting for chief complaint of exposure to chemicals. 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 Patient states he left the shift, rinsing his eyes when he noticed burning. Patient states he fell asleep and waking up around 3 PM this afternoon. Patient states he had rinsed his eyes for 30 minutes at a time. Patient states he had broken up his eyes were cloudy as though there was no compartment. He can see the fogginess of his cornea. He states there was a mild burning sensation and he had photophobia. Patient states his only history as far as his eyes is cataract removal of the left. Remaining review of system negative patient denies any deep pain, headache, nausea, vomiting. - Related Data Home Medications Medication Instructions Recorded Confirmed Gabapentin 800 mg PO QID 07/16/15 10/29/17 Glucagon Emergency Kit 1 mg IM ONCE PRN 07/16/15 10/29/17 Benazepril HCl 40 mg PO DAILY 06/24/16 10/29/17 INSULIN ASPART (NovoLOG) [NovoLOG 10 unit SQ AC-TID 06/24/16 10/29/17 (formulary)] Insulin Glargine [Lantus] 80 unit SQ DAILY 06/24/16 10/29/17 Atorvastatin [Lipitor] 80 mg PO DAILY 08/12/16 10/29/17 Omeprazole [PriLOSEC] 20 mg PO DAILY 08/12/16 10/29/17 INSULIN ASPART (NovoLOG) [NovoLOG See Protocol SQ AC-TID 10/29/17 10/29/17 (formulary)] traMADol HCL [Ultram] 50 mg PO BID 10/29/17 10/29/17 Previous Rx's Medication Instructions Recorded Cephalexin [Keflex] 500 mg PO Q6HR #40 cap 11/02/17 INSULIN ASPART (NovoLOG) [NovoLOG 4 unit SQ AC-TID vial 08/28/18 (formulary)] Artificial Tears-Hypromellose 1 drops BOTH EYES TID 7 Days #1 06/03/18 [Artificial Tear Drops] bottle Vvcntgvx-Ggteuehvp-Kfnoosef 2 drops BOTH EYES Q6H 7 Days #1 06/03/18 [Maxitrol Ophth Susp] bottle Allergies Allergy/AdvReac Type Severity Reaction Status Date / Time venom-honey bee Allergy Unknown Verified 06/03/18 17:42 [bee venom (honey bee)] Review of Systems ROS Statement: Those systems with pertinent positive or pertinent negative responses have been documented in the HPI. ROS Other: All systems not noted in ROS Statement are negative. Past Medical History Past Medical History: Diabetes Mellitus, GERD/Reflux, Hyperlipidemia, Hypertension Additional Past Medical History / Comment(s): Multiple vitreous hemorrhages, rt cataract, IDDM, pt stated he thinks he had a pne vaccine but proposal writer unable to verify date at time of this admit History of Any Multi-Drug Resistant Organisms: None Reported Past Surgical History: Orthopedic Surgery Additional Past Surgical History / Comment(s): Laser eye surgery;lt eye vitrectomy, lt cataract, hip surgery-[address] Past Anesthesia/Blood Transfusion Reactions: No Reported Reaction Past Psychological History: No Psychological Hx Reported Smoking Status: Former smoker Past Alcohol Use History: None Reported Past Drug Use History: None Reported - Past Family History Father Family Medical History: No Reported History Mother Family Medical History: Liver Disease Additional Family Medical History / Comment(s): alcoholic cirrhosis of the liver- General Exam - General Exam Comments Initial Comments: General: The patient is awake and alert, in no distress, and does not appear acutely ill. Eye: VA 20/30 OD, 2040 OS 20/30 both eyes. IOP 18 OD, 12 OS. Pupils are equal, round and reactive to light, extra-ocular movements are intact. No nystagmus. There is mild conjunctival injection bilaterally this is sparing the limbus bilaterally. No signs of icterus. Upon fluorescein examination there is no areas of uptake. Slit-lamp exam revealed mild climbing of the cornea superficially bilaterally. No ulceration. Negative Estela sign. Ears, nose, mouth and throat: There are moist mucous membranes and no oral lesions. Neck: The neck is supple, there is no tenderness or JVD. Cardiovascular: There is a regular rate and rhythm. No murmur, rub or gallop is appreciated. Respiratory: Lungs are clear to auscultation, respirations are non-labored, breath sounds are equal. No wheezes, stridor, rales, or rhonchi. Musculoskeletal: Radial pulses equal bilaterally 2+. Neurological: A&O x 3. CN II-XII intact, There are no obvious motor or sensory deficits. Coordination appears grossly intact. Speech is normal. Skin: Skin is warm and dry and no rashes or lesions are noted. No moctezuma or erythema of the face. Psychiatric: Cooperative, appropriate mood & affect, normal judgment. Limitations: no limitations Course Vital Signs 06/03/18 17:38 Temperature 98.3 F Pulse Rate 105 H Respiratory 18 Rate Blood Pressure 109/64 O2 Sat by Pulse 98 Oximetry - Reevaluation(s) Reevaluation #1: I discussed case with her provider, ophthalmology Dr. Terrazas was contacted, he will present for inpatient evaluation. Reevaluation #2: Pt was irrigated with 1 L of normal saline with Anthony lens of the eyes bilaterally. Reevaluation #3: Dr. Terrazas evaluated patient, he sees no evidence of iritis or uveitis. Patient has superficial moctezuma to the cornea. He recommended antibiotics/steroid ointment as well as artificial tears. He states patient is stable for discharge with follow-up in office with his lead programmer or he is welcome to follow-up with Dr. Terrazas if he is unable to obtain an appointment with Dr. Brooks on Wednesday or Wednesday of next week. Patient is agreeable plan Medical Decision Making - Medical Decision Making 38-year-old male presenting for exposure to chemical. Patient has superficial clouding of the cornea bilaterally. Eyes extensively irrigated with Anthony lens. No uptake on fluorescein exam. VA 20/30 OD, 20/40. IOP WNL. No injection of the limbus. No evidence of uveitis/iritis. Ophthalmology contacted. Evaluated by Dr. Terrazas recommended discharge with outpatient follow-up. She was placed on antibiotic and steroid solution as well as artificial tears. Patient explained importance of follow-up as well as return parameters. Patient discharged appearing well. Verbalize understanding of plan and importance of follow-up. Case was discussed with Dr. Guzman without a patient in person. He did contact ophthalmology speak with him directly. He is agreeable care plan as well as discharge. Disposition Clinical Impression: Chemical burn of cornea Disposition: HOME SELF-CARE Condition: Good Instructions (If sedation given, give patient instructions): Chemical Eye Moctezuma (ED) Additional Instructions: Please use medication as discussed. Please follow-up with ophthalmology on Wednesday or Wednesday as discussed. Please return to emergency room if the symptoms increase or worsen or for any other concerns. Prescriptions: Artificial Tears-Hypromellose [Artificial Tear Drops] 1 drops BOTH EYES TID 7 Days #1 bottle Cegkbvwm-Dfabtabfi-Qrjprzmo [Maxitrol Ophth Susp] 2 drops BOTH EYES Q6H 7 Days #1 bottle Is patient prescribed a controlled substance at d/c from ED?: No Referrals: Rasta David MD [Primary Care Provider] - 1-2 days Zachery Brooks DO [Doctor of Osteopathic Medicine] - 1-2 days Handy Terrazas MD [STAFF PHYSICIAN] - 1-2 days Time of Disposition: 19:27
--- NOTE | 2018-06-03 19:28 | P.CON ---
Consult Note - . 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 He began to experience symptoms after awakening. He states is vision is not as normal, but not profoundly painful. He was wearing safety glasses, not the goggles his co-workers have been wearing. He has previous history of diabetic retinopathy treated with PRP, and has undergone vitrectomy and lens implant surgery on the left eye. He is being treated with irrigation delivered with Anthony lenses. PE: Va w/o correction 20/30 OD; 20/40 OS. External unremarkable Conjunctiva mildly injected OU Cornea: no stain with fluorescein, mild hazing overall without overt edema. AC: quiet & deep A: Keratitis, bilateral, possibly chemical vs. mechanical from congealed aliphatic? lubricant. P: recommend aggressive lubrication, preferably using preservative free drops, and consider ointment at bedtime. Maxitrol drops 4 times daily for 7 days. Recommend follow up with DR. Brooks in a few days.
== END 2018-06-03 20:15 | disposition home or self-care (01) ==
LOC: EC 17:32
DX: T26.12XA Burn of cornea and conjunctival sac, left eye, initial encounter (principal); T26.11XA Burn of cornea and conjunctival sac, right eye, initial encounter; T65.91XA Toxic effect of unspecified substance, accidental (unintentional), initial encounter; E11.9 Type 2 diabetes mellitus without complications; K21.9 Gastro-esophageal reflux disease without esophagitis; E78.5 Hyperlipidemia, unspecified; I10 Essential (primary) hypertension; Z87.891 Personal history of nicotine dependence; Z79.4 Long term (current) use of insulin; Z79.899 Other long term (current) drug therapy; Z79.891 Long term (current) use of opiate analgesic; Z91.030 Bee allergy status; Y92.69 Other specified industrial and construction area as the place of occurrence of the external cause; Y99.0 Civilian activity done for income or pay
CPT/HCPCS: 99283

== ENCOUNTER 2018-09-01 14:02 | Emergency (ER) | payer OTHER ==
[2018-09-01 14:07] LABS: Glucose,Whole Blood 137 mg/dL (75-99)
--- NOTE | 2018-09-01 14:29 | ED ---
General Adult HPI - General Chief complaint: Recheck/Abnormal Lab/Rx Stated complaint: Hypoglycemia Time Seen by Provider: 09/01/18 14:04 Source: patient, EMS, RN notes reviewed, old records reviewed Mode of arrival: EMS Limitations: altered mental status - History of Present Illness Initial comments: Patient is a 38-year-old male known diabetic. He presents today for evaluation for hypoglycemic episode. Patient reports that he took his insulin injection and was riding his bike to [employer]. Patient had a confused state, and EMS was called. Patient was given food, and candy stated that his mental status greatly improved. When EMS arrived to see and patient's blood sugar was 43. Patient denies any other complaints. Denies any falls or head injury. - Related Data Home Medications Medication Instructions Recorded Confirmed Gabapentin 800 mg PO QID 07/16/15 09/01/18 Glucagon Emergency Kit 1 mg IM ONCE PRN 07/16/15 09/01/18 Benazepril HCl 40 mg PO DAILY 06/24/16 09/01/18 INSULIN ASPART (NovoLOG) [NovoLOG 10 unit SQ AC-TID 06/24/16 09/01/18 (formulary)] Insulin Glargine [Lantus] 80 unit SQ DAILY 06/24/16 09/01/18 Atorvastatin [Lipitor] 80 mg PO DAILY 08/12/16 09/01/18 Omeprazole [PriLOSEC] 20 mg PO DAILY 08/12/16 09/01/18 INSULIN ASPART (NovoLOG) [NovoLOG See Protocol SQ AC-TID 10/29/17 09/01/18 (formulary)] traMADol HCL [Ultram] 50 mg PO BID 10/29/17 09/01/18 Previous Rx's Medication Instructions Recorded Cephalexin [Keflex] 500 mg PO Q6HR #40 cap 11/02/17 INSULIN ASPART (NovoLOG) [NovoLOG 4 unit SQ AC-TID vial 11/02/17 (formulary)] Artificial Tears-Hypromellose 1 drops BOTH EYES TID 7 Days #1 06/03/18 [Artificial Tear Drops] bottle Xproyccs-Mzevgmnfr-Slqwefsm 2 drops BOTH EYES Q6H 7 Days #1 06/03/18 [Maxitrol Ophth Susp] bottle Allergies Allergy/AdvReac Type Severity Reaction Status Date / Time venom-honey bee Allergy Unknown Verified 09/01/18 14:12 [bee venom (honey bee)] Review of Systems ROS Statement: Those systems with pertinent positive or pertinent negative responses have been documented in the HPI. ROS Other: All systems not noted in ROS Statement are negative. Past Medical History Past Medical History: Diabetes Mellitus, GERD/Reflux, Hyperlipidemia, Hypertension Additional Past Medical History / Comment(s): Multiple vitreous hemorrhages, rt cataract, IDDM, pt stated he thinks he had a pne vaccine but credit underwriter unable to verify date at time of this admit History of Any Multi-Drug Resistant Organisms: None Reported Past Surgical History: Orthopedic Surgery Additional Past Surgical History / Comment(s): Laser eye surgery;lt eye vitrectomy, lt cataract, hip surgery-[address] Past Anesthesia/Blood Transfusion Reactions: No Reported Reaction Past Psychological History: No Psychological Hx Reported Smoking Status: Former smoker Past Alcohol Use History: None Reported Past Drug Use History: None Reported - Past Family History Father Family Medical History: No Reported History Mother Family Medical History: Liver Disease Additional Family Medical History / Comment(s): alcoholic cirrhosis of the liver- General Exam - General Exam Comments Initial Comments: This is a 38-year-old male. Alert and oriented 3. No significant distress. Limitations: altered mental status General appearance: alert, in no apparent distress Head exam: Present: atraumatic, normocephalic, normal inspection Eye exam: Present: normal appearance, PERRL, EOMI. Absent: scleral icterus, conjunctival injection, periorbital swelling ENT exam: Present: normal exam, mucous membranes moist Neck exam: Present: normal inspection. Absent: tenderness, meningismus, lymphadenopathy Respiratory exam: Present: normal lung sounds bilaterally. Absent: respiratory distress, wheezes, rales, rhonchi, stridor Cardiovascular Exam: Present: regular rate, normal rhythm, normal heart sounds. Absent: systolic murmur, diastolic murmur, rubs, gallop, clicks GI/Abdominal exam: Present: soft, normal bowel sounds. Absent: distended, tenderness, guarding, rebound, rigid Extremities exam: Present: normal inspection, full ROM, normal capillary refill. Absent: tenderness, pedal edema, joint swelling, calf tenderness Back exam: Present: normal inspection Neurological exam: Present: alert, oriented X3, CN II-XII intact Psychiatric exam: Present: normal affect, normal mood Skin exam: Present: warm, dry, intact, normal color. Absent: rash Course Vital Signs 09/01/18 09/01/18 14:08 15:09 Temperature 97.6 F 97.7 F Pulse Rate 104 H 88 Respiratory 18 17 Rate Blood Pressure 142/87 141/86 O2 Sat by Pulse 100 97 Oximetry Medical Decision Making - Medical Decision Making Patient is a 38 year old male, presents today with complaints of hypoglycemia episdoe. Patient had blood sugar of 43 and episdoe of confusion. Patient was given amp of glucagon and eat and drank in eD. He has no other complaints and reports he didnt eat soon enough after dosing his insulin. AIC was previouslyy 5.3.PAtient BG went up to 120 one hour after arrival. Discussed proper eating habits with insulin dosing. - Lab Data Lab Results 09/01/18 09/01/18 Range/Units 14:05 14:49 POC Glucose (mg/dL) 137 H 115 H (75-99) mg/dL POC Glu Teacher Hearing Impaired Jenny Vences Ashley Disposition Clinical Impression: Hypoglycemia Disposition: HOME SELF-CARE Condition: Good Instructions (If sedation given, give patient instructions): Hypoglycemia in a Person with Diabetes (ED) Additional Instructions: Patient advised to have frequent small snacks. Close follow-up with primary care doctors. Return to the emergency department if any alarming signs or symptoms occur. Is patient prescribed a controlled substance at d/c from ED?: No Referrals: Rasta David MD [Primary Care Provider] - 1-2 days Time of Disposition: 14:59
[2018-09-01 14:53] LABS: Glucose,Whole Blood 115 mg/dL (75-99)
[2018-09-01 15:11] VITALS: BP 141/86; PULSE 88; RESP 17; TEMP 97.7
== END 2018-09-01 15:10 | disposition home or self-care (01) ==
LOC: EC 14:02
DX: E11.649 Type 2 diabetes mellitus with hypoglycemia without coma (principal); E78.5 Hyperlipidemia, unspecified; K21.9 Gastro-esophageal reflux disease without esophagitis; I10 Essential (primary) hypertension; Z98.890 Other specified postprocedural states; Z87.891 Personal history of nicotine dependence; Z79.4 Long term (current) use of insulin; Z79.891 Long term (current) use of opiate analgesic; Z79.899 Other long term (current) drug therapy; Z91.030 Bee allergy status
CPT/HCPCS: 36415; 99285

== ENCOUNTER 2018-10-11 12:00 | Emergency (ER) | payer OTHER ==
[2018-10-11] MEDS ORDERED: DEXTROSE 50% SYRINGE 50 ML IVP STA (12:11)
[2018-10-11] MEDS ORDERED: SODIUM CHLORIDE 0.9% 500 ML 500 ML IV ONE (12:11)
[2018-10-11 12:14] LABS: Glucose,Whole Blood 30 mg/dL (75-99)
[2018-10-11 12:28] LABS: Basophils % (A) 0 %; Eosinophils % (A) 0 %; HCT 40.6 % (39.0-53.0); HGB 14.1 gm/dL (13.0-17.5); Lymphocytes # (A) 1.2 k/uL (1.0-4.8); Lymphocytes % (A) 12 %; MCH 31.4 pg (25.0-35.0); MCHC 34.8 g/dL (31.0-37.0); Mean Platelet Volume 7.3; Monocytes # (A) 0.5 k/uL (0-1.0); Monocytes % (A) 5 %; Neutrophils % (A) 81 %; Platelet Count 247 k/uL (150-450); RBC 4.51 m/uL (4.30-5.90); WBC 9.9 k/uL (3.8-10.6)
--- NOTE | 2018-10-11 12:29 | ED ---
General Adult HPI - General Stated complaint: Unresponsive Time Seen by Provider: 10/11/18 12:00 Source: EMS, RN notes reviewed Mode of arrival: EMS Limitations: altered mental status - History of Present Illness Initial comments: This is a 38-year-old male presents unresponsive. Friend found the patient unresponsive at home and try to give the patient some syrup because he is a diabetic. Patient's sugar according to EMS was 82 and they got there but he still remained unresponsive but vitals were stable. Patient arrived unresponsive and no further history is available. However I gave the patient a amp of D50 once an IV was started and the patient almost immediately woke up and when I asked him what was wrong he states I just my sugar was low. Patient sugar just prior to giving the D50 was 30. She has no complaint at this time. - Related Data Home Medications Medication Instructions Recorded Confirmed Gabapentin 800 mg PO QID 07/16/15 10/11/18 Benazepril HCl 40 mg PO DAILY 06/24/16 10/11/18 Insulin Glargine [Lantus] 60 unit SQ DAILY 06/24/16 10/11/18 Atorvastatin [Lipitor] 80 mg PO DAILY 08/12/16 10/11/18 Omeprazole [PriLOSEC] 20 mg PO BID 08/12/16 10/11/18 traMADol HCL [Ultram] 50 mg PO BID 10/29/17 10/11/18 Insulin Lispro [Admelog] See Protocol SQ AC-TID 10/11/18 10/11/18 Allergies Allergy/AdvReac Type Severity Reaction Status Date / Time venom-honey bee Allergy Unknown Verified 10/11/18 12:45 [bee venom (honey bee)] Review of Systems ROS Statement: Those systems with pertinent positive or pertinent negative responses have been documented in the HPI. ROS Other: All systems not noted in ROS Statement are negative. Past Medical History Past Medical History: Diabetes Mellitus, GERD/Reflux, Hyperlipidemia, Hypertension Additional Past Medical History / Comment(s): Multiple vitreous hemorrhages, rt cataract, IDDM, pt stated he thinks he had a pne vaccine but fiction writer unable to verify date at time of this admit History of Any Multi-Drug Resistant Organisms: None Reported Past Surgical History: Orthopedic Surgery Additional Past Surgical History / Comment(s): Laser eye surgery;lt eye vitrectomy, lt cataract, hip surgery-[address] Past Anesthesia/Blood Transfusion Reactions: No Reported Reaction Past Psychological History: No Psychological Hx Reported Smoking Status: Former smoker Past Alcohol Use History: None Reported Past Drug Use History: None Reported - Past Family History Father Family Medical History: No Reported History Mother Family Medical History: Liver Disease Additional Family Medical History / Comment(s): alcoholic cirrhosis of the liver- General Exam - General Exam Comments Initial Comments: GENERAL: Patient is well-developed and well-nourished. Patient is nontoxic and well- hydrated and is in no acute distress. ENT: Neck is soft and supple. No significant lymphadenopathy is noted. Oropharynx is clear. Moist mucous membranes. Neck has full range of motion without eliciting any pain. EYES: The sclera were anicteric and conjunctiva were pink and moist. Extraocular movements were intact and pupils were equal round and reactive to light. Eyelids were unremarkable. PULMONARY: Unlabored respirations. Good breath sounds bilaterally. No audible rales rhonchi or wheezing was noted. CARDIOVASCULAR: There is a regular rate and rhythm without any murmurs gallops or rubs. ABDOMEN: Soft and nontender with normal bowel sounds. SKIN: Skin is clear with no lesions or rashes and otherwise unremarkable. NEUROLOGIC: Patient is unresponsive MUSCULOSKELETAL: Normal extremities with adequate strength and full range of motion. No lower extremity swelling or edema. No calf tenderness. LYMPHATICS: No significant lymphadenopathy is noted PSYCHIATRIC: Patient is currently unresponsive Limitations: altered mental status Course Vital Signs 10/11/18 10/11/18 10/11/18 12:07 12:10 12:20 Temperature 98.0 F Pulse Rate 101 H 99 Respiratory 14 13 Rate Blood Pressure 155/105 143/82 147/91 O2 Sat by Pulse 100 100 Oximetry 10/11/18 10/11/18 12:50 13:00 Temperature Pulse Rate 102 H 95 Respiratory 27 H 20 Rate Blood Pressure 128/90 128/90 O2 Sat by Pulse Oximetry Medical Decision Making - Medical Decision Making EKG shows normal sinus rhythm at 90 bpm NC interval is 136 dresses 90 QT interval 3:30 QTC is 433. Patient's EKG shows no ST segment elevation or depression or T wave abnormalities are noted. Once patient was given D50 was alert and oriented 3 almost immediately. Patient ate in the emergency department and was feeling fine he had no complaints. Patient states today his sugar was high so he took his insulin but did not eat went home exercise and then found himself in the hospital. I will back in and reevaluated the patient prior to discharge and he was feeling fine and was requesting to go home. - Lab Data Result diagrams: 10/11/18 12:14 10/11/18 12:14 Lab Results 10/11/18 10/11/18 10/11/18 Range/Units 12:04 12:14 12:14 WBC 9.9 (3.8-10.6) k/uL RBC 4.51 (4.30-5.90) m/uL Hgb 14.1 (13.0-17.5) gm/dL Hct 40.6 (39.0-53.0) % MCV 90.0 (80.0-100.0) fL MCH 31.4 (25.0-35.0) pg MCHC 34.8 (31.0-37.0) g/dL RDW 13.0 (11.5-15.5) % Plt Count 247 (150-450) k/uL Neutrophils % 81 % Lymphocytes % 12 % Monocytes % 5 % Eosinophils % 0 % Basophils % 0 % Neutrophils # 8.0 H (1.3-7.7) k/uL Lymphocytes # 1.2 (1.0-4.8) k/uL Monocytes # 0.5 (0-1.0) k/uL Eosinophils # 0.0 (0-0.7) k/uL Basophils # 0.0 (0-0.2) k/uL Sodium 136 L (137-145) mmol/L Potassium 4.4 (3.5-5.1) mmol/L Chloride 101 (98-107) mmol/L Carbon Dioxide 24 (22-30) mmol/L Anion Gap 11 mmol/L BUN 18 (9-20) mg/dL Creatinine 0.94 (0.66-1.25) mg/dL Est GFR (CKD-EPI)AfAm >90 (>60 ml/min/1.73 sqM) Est GFR (CKD-EPI)NonAf >90 (>60 ml/min/1.73 sqM) Glucose 228 H (74-99) mg/dL POC Glucose (mg/dL) 30 L (75-99) mg/dL POC Glu Senior Vice President And Chief Information Officer Melvin Nguyen Calcium 9.7 (8.4-10.2) mg/dL Total Bilirubin 0.6 (0.2-1.3) mg/dL AST 29 (17-59) U/L ALT 44 (21-72) U/L Alkaline Phosphatase 89 (38-126) U/L Total Protein 7.2 (6.3-8.2) g/dL Albumin 4.5 (3.5-5.0) g/dL 10/11/18 Range/Units 13:07 WBC (3.8-10.6) k/uL RBC (4.30-5.90) m/uL Hgb (13.0-17.5) gm/dL Hct (39.0-53.0) % MCV (80.0-100.0) fL MCH (25.0-35.0) pg MCHC (31.0-37.0) g/dL RDW (11.5-15.5) % Plt Count (150-450) k/uL Neutrophils % % Lymphocytes % % Monocytes % % Eosinophils % % Basophils % % Neutrophils # (1.3-7.7) k/uL Lymphocytes # (1.0-4.8) k/uL Monocytes # (0-1.0) k/uL Eosinophils # (0-0.7) k/uL Basophils # (0-0.2) k/uL Sodium (137-145) mmol/L Potassium (3.5-5.1) mmol/L Chloride (98-107) mmol/L Carbon Dioxide (22-30) mmol/L Anion Gap mmol/L BUN (9-20) mg/dL Creatinine (0.66-1.25) mg/dL Est GFR (CKD-EPI)AfAm (>60 ml/min/1.73 sqM) Est GFR (CKD-EPI)NonAf (>60 ml/min/1.73 sqM) Glucose (74-99) mg/dL POC Glucose (mg/dL) 132 H (75-99) mg/dL POC Glu Senior Vice President And Chief Information Officer Melvin Nguyen Calcium (8.4-10.2) mg/dL Total Bilirubin (0.2-1.3) mg/dL AST (17-59) U/L ALT (21-72) U/L Alkaline Phosphatase (38-126) U/L Total Protein (6.3-8.2) g/dL Albumin (3.5-5.0) g/dL Disposition Clinical Impression: Hypoglycemia Disposition: HOME SELF-CARE Condition: Good Instructions (If sedation given, give patient instructions): Hypoglycemia in a Person with Diabetes (ED) Is patient prescribed a controlled substance at d/c from ED?: No Referrals: Rasta David MD [Primary Care Provider] - 1-2 days Time of Disposition: 13:29
[2018-10-11 12:35] LABS: ALT 44 U/L (21-72); AST 29 U/L (17-59); African American GFR (CKD) >90 (>60 ml/min/1.73 sqM); Albumin 4.5 g/dL (3.5-5.0); Alkaline Phosphatase 89 U/L (38-126); Anion Gap 11 mmol/L; Blood Urea Nitrogen 18 mg/dL (9-20); Calcium 9.7 mg/dL (8.4-10.2); Carbon Dioxide 24 mmol/L (22-30); Chloride 101 mmol/L (98-107); Glucose 228 mg/dL (74-99); Potassium 4.4 mmol/L (3.5-5.1); Sodium 136 mmol/L (137-145); Total Bilirubin 0.6 mg/dL (0.2-1.3); Total Protein 7.2 g/dL (6.3-8.2)
--- NOTE | 2018-10-11 12:42 | XR ---
EXAMINATION TYPE: XR chest 1V portable DATE OF EXAM: 10/11/2018 COMPARISON: 10/27/2017 HISTORY: Pain TECHNIQUE: Single frontal view of the chest is obtained. FINDINGS: There is no focal air space opacity, pleural effusion, or pneumothorax seen. The cardiac silhouette size is within normal limits. The osseous structures are intact. Heart is prominent. Sub segmental changes at the lung bases. Arthropathy of the shoulders. No overt failure. IMPRESSION: Basilar atelectasis favored over pneumonia. Correlate clinically..
[2018-10-11 13:10] LABS: Glucose,Whole Blood 132 mg/dL (75-99)
[2018-10-11 13:48] VITALS: BP 136/81; PULSE 99; RESP 18; TEMP 97.8
== END 2018-10-11 13:52 | disposition home or self-care (01) ==
LOC: EC 12:00
DX: E11.641 Type 2 diabetes mellitus with hypoglycemia with coma (principal); E78.5 Hyperlipidemia, unspecified; K21.9 Gastro-esophageal reflux disease without esophagitis; I10 Essential (primary) hypertension; Z79.4 Long term (current) use of insulin; Z79.899 Other long term (current) drug therapy; Z91.030 Bee allergy status; Z87.891 Personal history of nicotine dependence; Z86.69 Personal history of other diseases of the nervous system and sense organs; Z98.41 Cataract extraction status, right eye
CPT/HCPCS: 36415; 71045; 80053; 85025; 93005; 96361; 96374; 99284

== ENCOUNTER 2018-11-02 14:31 | Emergency (ER) | payer OTHER ==
[2018-11-02 15:02] VITALS: BP 127/88; PULSE 107; RESP 18; TEMP 98.2
[2018-11-02] MEDS ORDERED: ACET/COD 300 MG/30 MG STARTER PACK 6 TAB BTL PO STA (15:09)
--- NOTE | 2018-11-02 15:11 | ED ---
ENT HPI - General Chief complaint: ENT Stated complaint: Bit tongue/sore Time Seen by Provider: 11/02/18 14:55 Source: patient Mode of arrival: ambulatory Limitations: no limitations - History of Present Illness Initial comments: 38-year-old male patient presents to the emergency department today for evaluation of a wound to the right side of his tongue. Patient states Wednesday he had a hypoglycemic episode where he became unresponsive and bit his tongue. Patient states he initially had significant tongue swelling which he was only able to control utilizing ibuprofen and cold fluids. Patient states the swelling has subsided but he has a wound to the right side of his tongue that is very painful and firm. Patient denies any fever or chills. Denies any difficulty swallowing. Patient denies any recent rash, shortness breath, chest pain, abdominal pain, nausea, vomiting, diarrhea, constipation, back pain, numbness, tingling, dizziness, weakness, hematuria, dysuria, urinary urgency, urinary frequency, headache, visual changes, or any other complaints. - Related Data Home Medications Medication Instructions Recorded Confirmed Gabapentin 800 mg PO QID 07/16/15 10/11/18 Benazepril HCl 40 mg PO DAILY 06/24/16 10/11/18 Insulin Glargine [Lantus] 60 unit SQ DAILY 06/24/16 10/11/18 Atorvastatin [Lipitor] 80 mg PO DAILY 08/12/16 10/11/18 Omeprazole [PriLOSEC] 20 mg PO BID 08/12/16 10/11/18 traMADol HCL [Ultram] 50 mg PO BID 10/29/17 10/11/18 Insulin Lispro [Admelog] See Protocol SQ AC-TID 10/11/18 10/11/18 Allergies Allergy/AdvReac Type Severity Reaction Status Date / Time venom-honey bee Allergy Unknown Verified 10/11/18 12:45 [bee venom (honey bee)] Review of Systems ROS Statement: Those systems with pertinent positive or pertinent negative responses have been documented in the HPI. ROS Other: All systems not noted in ROS Statement are negative. Past Medical History Past Medical History: Diabetes Mellitus, GERD/Reflux, Hyperlipidemia, Hypertension Additional Past Medical History / Comment(s): Multiple vitreous hemorrhages, rt cataract, IDDM, pt stated he thinks he had a pne vaccine but aligner typewriter unable to v erify date at time of this admit History of Any Multi-Drug Resistant Organisms: None Reported Past Surgical History: Orthopedic Surgery Additional Past Surgical History / Comment(s): Laser eye surgery;lt eye vitrectomy, lt cataract, hip surgery-[address] Past Anesthesia/Blood Transfusion Reactions: No Reported Reaction Past Psychological History: No Psychological Hx Reported Smoking Status: Former smoker Past Alcohol Use History: None Reported Past Drug Use History: None Reported - Past Family History Father Family Medical History: No Reported History Mother Family Medical History: Liver Disease Additional Family Medical History / Comment(s): alcoholic cirrhosis of the live r- General Exam Limitations: no limitations General appearance: alert, in no apparent distress, other (This is a well-developed, well-nourished adult male patient in no acute distress. Vital signs upon presentation are temperature 98.2F, pulse 107, respirations 18, blood pressure 127/88, pulse ox 97% on room air.) Eye exam: Present: normal appearance, PERRL, EOMI. Absent: scleral icterus, conjunctival injection, periorbital swelling ENT exam: Present: normal oropharynx, mucous membranes moist, other (Patient has 1 cm x 2 cm circular wound to the right lateral tongue with central area of induration. No drainage noted.). Absent: normal exam Respiratory exam: Present: normal lung sounds bilaterally. Absent: respiratory distress, wheezes, rales, rhonchi, stridor Cardiovascular Exam: Present: regular rate, normal rhythm, normal heart sounds. Absent: systolic murmur, diastolic murmur, rubs, gallop, clicks Neurological exam: Present: alert, oriented X3, CN II-XII intact Psychiatric exam: Present: normal affect, normal mood Skin exam: Present: warm, dry, intact, normal color. Absent: rash Course Vital Signs 11/02/18 11/02/18 14:56 15:23 Temperature 98.2 F 98.2 F Pulse Rate 107 H 107 H Respiratory 18 18 Rate Blood Pressure 127/88 127/88 O2 Sat by Pulse 97 97 Oximetry Medical Decision Making - Medical Decision Making 38-year-old male patient presented to the emergency department today for evaluation of a wound to the right side of his tongue. Physical examination did reveal a 1 cm x 2 cm wound to the right lateral tongue with a central area of induration. No evidence for infection. There is concern for possible hematoma. We will discharge to follow-up with ear, nose, throat specialty. He is instructed to continue ibuprofen and cool fluids for control swelling and pain. He is instructed to follow-up with his primary care physician for recheck in 1-2 days. Return parameters were discussed in detail. He verbalizes understanding and agrees this plan. Disposition Clinical Impression: Open wound of tongue Disposition: HOME SELF-CARE Condition: Good Instructions (If sedation given, give patient instructions): Mouth Care (ED) Additional Instructions: Follow-up with the ears, nose, throat specialist for further evaluation. Continue taking ibuprofen for pain control. Do saltwater rinses. Drink cold drinks to help with swelling. Follow-up with your primary care physician for recheck in 1-2 days. Return to the emergency department immediately for any new, worsening, or concerning symptoms. Is patient prescribed a controlled substance at d/c from ED?: No Referrals: Rasta David MD [Primary Care Provider] - 1-2 days Adonay Alvarez MD [STAFF PHYSICIAN] - 1-2 days Time of Disposition: 15:11
== END 2018-11-02 15:23 | disposition home or self-care (01) ==
LOC: EC 14:31
DX: S00.572A Other superficial bite of oral cavity, initial encounter (principal); Z87.891 Personal history of nicotine dependence; Z91.030 Bee allergy status; E11.9 Type 2 diabetes mellitus without complications; K21.9 Gastro-esophageal reflux disease without esophagitis; E78.5 Hyperlipidemia, unspecified; I10 Essential (primary) hypertension; Z79.4 Long term (current) use of insulin; Z79.899 Other long term (current) drug therapy
CPT/HCPCS: 99283

== ENCOUNTER 2018-11-07 14:44 | Emergency (ER) | payer OTHER ==
[2018-11-07 15:20] VITALS: BP 134/78; PULSE 104; RESP 18; TEMP 98.3
[2018-11-07] MEDS ORDERED: AMOXIC-POT CLAV 875MG STARTER 2 EACH TABLET PO STA (15:44)
[2018-11-07] MEDS ORDERED: AMOXIC-POT CLAV 875-125MG 1 EACH TAB PO STA (15:44)
--- NOTE | 2018-11-07 15:46 | ED ---
General Adult HPI - General Chief complaint: Wound/Laceration Stated complaint: Tounge injury Time Seen by Provider: 11/07/18 15:12 Source: patient Mode of arrival: ambulatory Limitations: no limitations - History of Present Illness Initial comments: Patient is a 38-year-old male presenting to the emergency department with a chief complaint of pain on the tongue. Patient was evaluated by his primary care approximately one week ago after he bit his tongue during hypoglycemic episode. Patient reports he was prescribed Augmentin but has not been able to obtain the prescription due to a close pharmacy. Patient reports he scheduled an appointment with an ENT specialist but is not able to get in for another week. Patient reports he has developed pain with chewing. Patient denies any drooling or dysphagia. Patient denies night sweats fevers or chills. Patient came to the emergency department seeking antibiotics. - Related Data Home Medications Medication Instructions Recorded Confirmed Gabapentin 800 mg PO QID 07/16/15 10/11/18 Benazepril HCl 40 mg PO DAILY 06/24/16 10/11/18 Insulin Glargine [Lantus] 60 unit SQ DAILY 06/24/16 10/11/18 Atorvastatin [Lipitor] 80 mg PO DAILY 08/12/16 10/11/18 Omeprazole [PriLOSEC] 20 mg PO BID 08/12/16 10/11/18 traMADol HCL [Ultram] 50 mg PO BID 10/29/17 10/11/18 Insulin Lispro [Admelog] See Protocol SQ AC-TID 10/11/18 10/11/18 Previous Rx's Medication Instructions Recorded Amoxicillin/Potassium Clav 1 tab PO Q12HR #20 tab 11/07/18 [Augmentin 875-125 Tablet] Allergies Allergy/AdvReac Type Severity Reaction Status Date / Time venom-honey bee Allergy Unknown Verified 11/07/18 15:09 [bee venom (honey bee)] Review of Systems ROS Statement: Those systems with pertinent positive or pertinent negative responses have been documented in the HPI. ROS Other: All systems not noted in ROS Statement are negative. Past Medical History Past Medical History: Diabetes Mellitus, GERD/Reflux, Hyperlipidemia, Hypertension Additional Past Medical History / Comment(s): Multiple vitreous hemorrhages, rt cataract, IDDM, pt stated he thinks he had a pne vaccine but designer writer unable to verify date at time of this admit History of Any Multi-Drug Resistant Organisms: None Reported Past Surgical History: Orthopedic Surgery Additional Past Surgical History / Comment(s): Laser eye surgery;lt eye vitrectomy, lt cataract, hip surgery-[address] Past Anesthesia/Blood Transfusion Reactions: No Reported Reaction Past Psychological History: No Psychological Hx Reported Smoking Status: Former smoker Past Alcohol Use History: None Reported Past Drug Use History: None Reported - Past Family History Father Family Medical History: No Reported History Mother Family Medical History: Liver Disease Additional Family Medical History / Comment(s): alcoholic cirrhosis of the liver- General Exam Limitations: no limitations General appearance: alert, in no apparent distress Head exam: Present: atraumatic, normocephalic, normal inspection Eye exam: Present: normal appearance, PERRL, EOMI Pupils: Present: normal accommodation ENT exam: Present: normal exam, mucous membranes moist, TM's normal bilaterally, normal external ear exam. Absent: normal oropharynx (Lesion on the right lateral aspect of the tongue) Neck exam: Present: normal inspection, full ROM Respiratory exam: Present: normal lung sounds bilaterally Cardiovascular Exam: Present: regular rate, normal rhythm, normal heart sounds Extremities exam: Present: normal inspection, full ROM Back exam: Present: normal inspection, full ROM Neurological exam: Present: alert, oriented X3 Psychiatric exam: Present: normal affect, normal mood Skin exam: Present: warm, intact, normal color Course Vital Signs 11/07/18 15:17 Temperature 98.3 F Pulse Rate 104 H Respiratory 18 Rate Blood Pressure 134/78 O2 Sat by Pulse 97 Oximetry Medical Decision Making - Medical Decision Making Patient is a 38-year-old male presenting to emergency department with a chief complaint pain on the tongue. Patient reports he has been unable to obtain his prescription from the pharmacy due to closure. Patient reports he scheduled to see an ENT specialist next week. Patient reports he was initially prescribed Augmentin but has not been able to get any. There is a lesion on the lateral aspect right thumb measuring approximately 1 cm with no exudates. There is a possibility this could be a neoplasm. Patient is a smoker. Patient was given Augmentin here and discharged with a started pack. Patient also be discharged with a 10 day course of Augmentin. Patient came to the ED so he can obtain his antibiotics. Strict return parameters were thoroughly discussed the patient was understanding and agreeable. Case discussed with physician. Disposition Clinical Impression: Tongue lesion Disposition: HOME SELF-CARE Condition: Stable Instructions (If sedation given, give patient instructions): Oral Candidiasis (ED) Additional Instructions: Please take prescribed medication as directed. Please follow up with ENT. Please return to emergency department if symptoms worsen. Prescriptions: Amoxicillin/Potassium Clav [Augmentin 875-125 Tablet] 1 tab PO Q12HR #20 tab Is patient prescribed a controlled substance at d/c from ED?: No Referrals: Rasta David MD [Primary Care Provider] - 1-2 days Time of Disposition: 15:46
== END 2018-11-07 16:07 | disposition home or self-care (01) ==
LOC: EC 14:44
DX: S09.93XA Unspecified injury of face, initial encounter (principal); E11.9 Type 2 diabetes mellitus without complications; E78.5 Hyperlipidemia, unspecified; I10 Essential (primary) hypertension; Z87.891 Personal history of nicotine dependence; Z79.891 Long term (current) use of opiate analgesic; Z79.4 Long term (current) use of insulin; Z79.899 Other long term (current) drug therapy; Z91.030 Bee allergy status; Z98.41 Cataract extraction status, right eye; Z98.42 Cataract extraction status, left eye; X58.XXXA Exposure to other specified factors, initial encounter
CPT/HCPCS: 99283

== ENCOUNTER 2019-03-22 14:05 | Emergency (ER) | payer OTHER ==
[2019-03-22 14:13] VITALS: RESP 16
[2019-03-22 14:31] LABS: Glucose,Whole Blood 140 mg/dL (75-99)
--- NOTE | 2019-03-22 14:31 | ED ---
General Adult HPI <Jarad Dean Jorje - Last Filed: 03/22/19 18:38> - General Source: patient, police, EMS Mode of arrival: EMS Limitations: no limitations <Bigg Edwards Ousamne - Last Filed: 03/25/19 15:43> - General Chief complaint: Psychiatric Symptoms Stated complaint: Mental health Time Seen by Provider: 03/22/19 14:08 - History of Present Illness Initial comments: Dictation was produced using [employer] [place] dictation software. please excuse any grammatical, word or spelling errors. Chief Complaint: 38-year-old male brought in by law enforcement for suicidal ideation. History of Present Illness: He rolled male he was brought in by law enforcement for suicidal ideation. Allegedly patient wrote a suicidal note after having an argument with his girlfriend since yesterday. Note was confiscated by law enforcement. Upon initial encounter with patient law enforcement noted that he was slightly altered. His sugar was checked and found to be in the 30s. He was given oral glucose by EMS. Patient denies overdosing on insulin. He said he takes Lantus and a fast acting insulin on a sliding scale. Patient denies overdosing on any medications whatsoever. He states that he passed out because her sugar was low. Patient didn't strike his head. He reports falling. He does have an abrasion to his face. Denies any headache or neck pain at this time. The ROS documented in this emergency department record has been reviewed and confirmed by me. Those systems with pertinent positive or negative responses have been documented in the HPI. All other systems are other negative and/or noncontributory. PHYSICAL EXAM: General Impression: Alert and oriented x3, not in acute distress HEENT: 0.5 cm Laceration to the right lower inner lip, abrasion to the right c hin, abrasion to the forehead, extra-ocular movements intact, pupils equal and reactive to light bilaterally, mucous membranes moist. Cardiovascular: Heart regular rate and rhythm, S1&S2 audible, no murmurs, rubs or gallops Chest: Lungs clear to auscultation bilaterally, no rhonchi, no wheeze, no rales Abdomen: Bowel sounds present, abdomen soft, non-tender, non-distended, no organomegaly Musculoskeletal: Pulses present and equal in all extremities, no peripheral edema Motor: no focal deficits noted Neurological: CN II-XII grossly intact, no focal motor or sensory deficits noted Skin: Intact with no visualized rashes Psych: Normal affect and mood ED course: 38-year-old male presents with suicidal ideation, hypoglycemia and head contusion. Vital signs upon arrival shows heart rate of 105, rest vital signs within acceptable limits. Patient is petitioned by law enforcement for psych evaluation. Blood sugar here in emergency department is 140. Tetanus was updated. Patient care signed out to Dr. Dean, who will follow up with EPS recommendations. (Bigg Edwards) - Related Data Home Medications Medication Instructions Recorded Confirmed Gabapentin 800 mg PO QID 07/16/15 10/11/18 Benazepril HCl 40 mg PO DAILY 06/24/16 10/11/18 Insulin Glargine [Lantus] 60 unit SQ DAILY 06/24/16 10/11/18 Atorvastatin [Lipitor] 80 mg PO DAILY 08/12/16 10/11/18 Omeprazole [PriLOSEC] 20 mg PO BID 08/12/16 10/11/18 traMADol HCL [Ultram] 50 mg PO BID 10/29/17 10/11/18 Insulin Lispro [Admelog] See Protocol SQ AC-TID 10/11/18 10/11/18 Previous Rx's Medication Instructions Recorded Amoxicillin/Potassium Clav 1 tab PO Q12HR #20 tab 11/07/18 [Augmentin 875-125 Tablet] Allergies Allergy/AdvReac Type Severity Reaction Status Date / Time venom-honey bee Allergy Unknown Verified 03/22/19 14:21 [bee venom (honey bee)] Review of Systems ROS Other: All systems not noted in ROS Statement are negative. <Jarad Dean - Last Filed: 03/22/19 18:38> ROS Other: All systems not noted in ROS Statement are negative. <Bigg Edwards - Last Filed: 03/25/19 15:43> ROS Statement: Those systems with pertinent positive or pertinent negative responses have been documented in the HPI. Past Medical History Past Medical History: Diabetes Mellitus, GERD/Reflux, Hyperlipidemia, Hypertens ion Additional Past Medical History / Comment(s): Multiple vitreous hemorrhages, rt cataract, IDDM, pt stated he thinks he had a pne vaccine but journalists and other writers unable to verify date at time of this admit History of Any Multi-Drug Resistant Organisms: None Reported Past Surgical History: Orthopedic Surgery Additional Past Surgical History / Comment(s): Laser eye surgery;lt eye vitrectomy, lt cataract, hip surgery-[address] Past Anesthesia/Blood Transfusion Reactions: No Reported Reaction Past Psychological History: No Psychological Hx Reported Smoking Status: Former smoker Past Alcohol Use History: None Reported Past Drug Use History: None Reported - Past Family History Father Family Medical History: No Reported History Mother Family Medical History: Liver Disease Additional Family Medical History / Comment(s): alcoholic cirrhosis of the liver- <Bigg Edwards - Last Filed: 03/25/19 15:43> General Exam Limitations: no limitations <Bigg Edwards - Last Filed: 03/25/19 15:43> Course <Jarad Dean - Last Filed: 03/22/19 18:38> Vital Signs 03/22/19 03/22/19 03/22/19 14:08 15:55 18:40 Temperature 98.2 F Pulse Rate 105 H 72 Respiratory 16 16 16 Rate Blood Pressure 119/81 121/68 O2 Sat by Pulse 99 99 Oximetry - Reevaluation(s) Reevaluation #1: 03/22/19 18:38 Records reviewed and patient was made medically clear for psychiatric evaluation (Jarad Dean) Reevaluation #2: 03/22/19 18:38 Patient was seen and evaluated he did contract for safety and did agree with s afety plan (Jarad Dean) Medical Decision Making - Lab Data Result diagrams: 03/22/19 15:11 03/22/19 15:11 <Jarad Dean - Last Filed: 03/22/19 18:38> - Lab Data Result diagrams: 03/22/19 15:11 03/22/19 15:11 <Bigg Edwards - Last Filed: 03/25/19 15:43> - Medical Decision Making 38 Male here for evaluation patient will be discharged home, no significant acute distress (Jarad Dean) - Lab Data Lab Results 03/22/19 03/22/19 03/22/19 Range/Units 10:10 14:11 15:11 WBC 13.0 H (3.8-10.6) k/uL RBC 5.20 (4.30-5.90) m/uL Hgb 15.9 (13.0-17.5) gm/dL Hct 48.7 (39.0-53.0) % MCV 93.6 (80.0-100.0) fL MCH 30.6 (25.0-35.0) pg MCHC 32.7 (31.0-37.0) g/dL RDW 12.9 (11.5-15.5) % Plt Count 257 (150-450) k/uL Neutrophils % 87 % Lymphocytes % 7 % Monocytes % 5 % Eosinophils % 0 % Basophils % 1 % Neutrophils # 11.3 H (1.3-7.7) k/uL Lymphocytes # 0.9 L (1.0-4.8) k/uL Monocytes # 0.6 (0-1.0) k/uL Eosinophils # 0.0 (0-0.7) k/uL Basophils # 0.1 (0-0.2) k/uL Sodium (137-145) mmol/L Potassium (3.5-5.1) mmol/L Chloride (98-107) mmol/L Carbon Dioxide (22-30) mmol/L Anion Gap mmol/L BUN (9-20) mg/dL Creatinine (0.66-1.25) mg/dL Est GFR (CKD-EPI)AfAm (>60 ml/min/1.73 sqM) Est GFR (CKD-EPI)NonAf (>60 ml/min/1.73 sqM) Glucose (74-99) mg/dL POC Glucose (mg/dL) 140 H (75-99) mg/dL POC Glu Steam Cleaning Machine Operator ID Dannie Heath Calcium (8.4-10.2) mg/dL Salicylates mg/dL Urine Opiates Screen Negative (Negative) ng/mL Urine Methadone Screen Negative (Negative) ng/mL Ur Propoxyphene Screen Negative (Negative) ng/mL Acetaminophen ug/mL Urine Barbiturates Negative (Negative) ng/mL Ur Phencyclidine Scrn Negative (Negative) ng/mL Ur Amphetamine Screen Negative (Negative) ng/mL U Benzodiazepines Scrn Negative (Negative) ng/mL Urine Cocaine Screen Negative (Negative) ng/mL U Cannabinoids Screen Negative (Negative) ng/mL Urine Alcohol Negative (Negative) mg/dL Serum Alcohol mg/dL 03/22/19 03/22/19 03/22/19 Range/Units 15:11 15:47 17:42 WBC (3.8-10.6) k/uL RBC (4.30-5.90) m/uL Hgb (13.0-17.5) gm/dL Hct (39.0-53.0) % MCV (80.0-100.0) fL MCH (25.0-35.0) pg MCHC (31.0-37.0) g/dL RDW (11.5-15.5) % Plt Count (150-450) k/uL Neutrophils % % Lymphocytes % % Monocytes % % Eosinophils % % Basophils % % Neutrophils # (1.3-7.7) k/uL Lymphocytes # (1.0-4.8) k/uL Monocytes # (0-1.0) k/uL Eosinophils # (0-0.7) k/uL Basophils # (0-0.2) k/uL Sodium 142 (137-145) mmol/L Potassium 4.1 (3.5-5.1) mmol/L Chloride 100 (98-107) mmol/L Carbon Dioxide 29 (22-30) mmol/L Anion Gap 13 mmol/L BUN 17 (9-20) mg/dL Creatinine 0.82 (0.66-1.25) mg/dL Est GFR (CKD-EPI)AfAm >90 (>60 ml/min/1.73 sqM) Est GFR (CKD-EPI)NonAf >90 (>60 ml/min/1.73 sqM) Glucose 100 H (74-99) mg/dL POC Glucose (mg/dL) 94 83 (75-99) mg/dL POC Glu Steam Cleaning Machine Operator ID TroncosoJaneen Danielle Calcium 10.4 H (8.4-10.2) mg/dL Salicylates <1.0 mg/dL Urine Opiates Screen (Negative) ng/mL Urine Methadone Screen (Negative) ng/mL Ur Propoxyphene Screen (Negative) ng/mL Acetaminophen <10.0 ug/mL Urine Barbiturates (Negative) ng/mL Ur Phencyclidine Scrn (Negative) ng/mL Ur Amphetamine Screen (Negative) ng/mL U Benzodiazepines Scrn (Negative) ng/mL Urine Cocaine Screen (Negative) ng/mL U Cannabinoids Screen (Negative) ng/mL Urine Alcohol (Negative) mg/dL Serum Alcohol <10 mg/dL Disposition Is patient prescribed a controlled substance at d/c from ED?: No <Jarad Dean B - Last Filed: 03/22/19 18:38> Is patient prescribed a controlled substance at d/c from ED?: No Time of Disposition: 15:43 <Bigg Edwards - Last Filed: 03/25/19 15:43> Clinical Impression: Depression Disposition: HOME SELF-CARE Condition: Fair Instructions (If sedation given, give patient instructions): Depression (ED) Referrals: Rasta David MD [Primary Care Provider] - 1-2 days
[2019-03-22] MEDS ORDERED: PANTOPRAZOLE 40 MG TABLET PO STA (14:55)
[2019-03-22 15:46] LABS: Basophils # (A) 0.1 k/uL (0-0.2); Basophils % (A) 1 %; Eosinophils % (A) 0 %; HCT 48.7 % (39.0-53.0); HGB 15.9 gm/dL (13.0-17.5); Lymphocytes # (A) 0.9 k/uL (1.0-4.8); Lymphocytes % (A) 7 %; MCH 30.6 pg (25.0-35.0); MCHC 32.7 g/dL (31.0-37.0); MCV 93.6 fL (80.0-100.0); Mean Platelet Volume 8.1; Monocytes # (A) 0.6 k/uL (0-1.0); Monocytes % (A) 5 %; Neutrophils # (A) 11.3 k/uL (1.3-7.7); Neutrophils % (A) 87 %; Platelet Count 257 k/uL (150-450); RDW 12.9 % (11.5-15.5)
[2019-03-22 16:06] LABS: Acetaminophen <10.0 ug/mL; African American GFR (CKD) >90 (>60 ml/min/1.73 sqM); Alcohol <10 mg/dL; Anion Gap 13 mmol/L; Blood Urea Nitrogen 17 mg/dL (9-20); Calcium 10.4 mg/dL (8.4-10.2); Carbon Dioxide 29 mmol/L (22-30); Chloride 100 mmol/L (98-107); Glucose 100 mg/dL (74-99); Non-African American GFR(CKD) >90 (>60 ml/min/1.73 sqM); Potassium 4.1 mmol/L (3.5-5.1); Salicylate <1.0 mg/dL; Sodium 142 mmol/L (137-145)
[2019-03-22 16:07] LABS: Glucose,Whole Blood 94 mg/dL (75-99)
[2019-03-22] MEDS ORDERED: DIPH,PERTUS(ACELL)TETVAC-LF 0.5 ML VIAL IM ONE (17:04)
[2019-03-22 17:43] LABS: Glucose,Whole Blood 83 mg/dL (75-99)
[2019-03-22 18:45] VITALS: BP 121/68; PULSE 72; TEMP 98.2
[2019-03-23 02:08] LABS: Urine Alcohol Negative (Negative); Urine Barbiturate Negative (Negative); Urine Cocaine Negative (Negative); Urine Methadone Negative (Negative); Urine Opiates Negative (Negative); Urine Phencyclidine Negative (Negative)
== END 2019-03-22 18:40 | disposition home or self-care (01) ==
LOC: EC 14:05
DX: F32.9 Major depressive disorder, single episode, unspecified (principal); S01.511A Laceration without foreign body of lip, initial encounter; S00.83XA Contusion of other part of head, initial encounter; E11.649 Type 2 diabetes mellitus with hypoglycemia without coma; R45.851 Suicidal ideations; K21.9 Gastro-esophageal reflux disease without esophagitis; E78.5 Hyperlipidemia, unspecified; I10 Essential (primary) hypertension; Z87.891 Personal history of nicotine dependence; Z91.030 Bee allergy status; Z79.4 Long term (current) use of insulin; Z79.891 Long term (current) use of opiate analgesic; Z79.899 Other long term (current) drug therapy; W19.XXXA Unspecified fall, initial encounter; Z53.20 Procedure and treatment not carried out because of patient's decision for unspecified reasons
CPT/HCPCS: 82075; 36415; 80048; 85025; 80306; 83520; 99285; G0480 ×2; 80320; 80329

== ENCOUNTER 2019-12-30 07:39 | Emergency (ER) | payer OTHER ==
[2019-12-30 07:44] VITALS: BP 173/108; PULSE 91; RESP 16; TEMP 98.4
[2019-12-30] MEDS ORDERED: PROPARACAINE 0.5% OPHTH DROPS 15 ML BTL RIGHT EYE STA (07:44)
[2019-12-30] MEDS ORDERED: FLUORESCEIN STRIPS 1 MG STRIP RIGHT EYE ONE (07:44)
[2019-12-30] MEDS ORDERED: DIPH,PERTUS(ACELL)TETVAC-LF 0.5 ML VIAL IM ONE (08:01)
[2019-12-30] MEDS ORDERED: TOBRAMYCIN 0.3% OPHTH DROPS 5 ML BTL RIGHT EYE STA (08:01)
[2019-12-30] MEDS ORDERED: ACET/COD 300 MG/30 MG STARTER PACK 6 TAB BTL PO STA (08:02)
--- NOTE | 2019-12-30 08:03 | ED ---
Eye Problem HPI - General Chief complaint: Eye Problems Stated complaint: Rust in eye Time Seen by Provider: 12/30/19 07:44 Source: patient, RN notes reviewed Mode of arrival: ambulatory Limitations: no limitations - History of Present Illness Initial comments: 39-year-old male presents emergency Department with chief complaint of right eye irritation. He states he was working on his vehicle yesterday underneath states he felt that he hasn't been his right eye. He attempted to flush it out multiple times states has worsened he states is very sensitive, red. Patient states that he has poor vision because it is sensitive he's had multiple surgeries on his eyes secondary to diabetic retinopathy. Patient follows up with ophthalmology and regular basis unable to get in today. Patient unsure when his last tetanus was. - Related Data Home Medications Medication Instructions Recorded Confirmed Gabapentin 800 mg PO QID 07/16/15 10/11/18 Benazepril HCl 40 mg PO DAILY 06/24/16 10/11/18 Insulin Glargine [Lantus] 60 unit SQ DAILY 06/24/16 10/11/18 Atorvastatin [Lipitor] 80 mg PO DAILY 08/12/16 10/11/18 Omeprazole [PriLOSEC] 20 mg PO BID 08/12/16 10/11/18 traMADol HCL [Ultram] 50 mg PO BID 10/29/17 10/11/18 Insulin Lispro [Admelog] See Protocol SQ AC-TID 10/11/18 10/11/18 Previous Rx's Medication Instructions Recorded Amoxicillin/Potassium Clav 1 tab PO Q12HR #20 tab 11/07/18 [Augmentin 875-125 Tablet] Allergies Allergy/AdvReac Type Severity Reaction Status Date / Time venom-honey bee Allergy Unknown Verified 12/30/19 07:43 [bee venom (honey bee)] Review of Systems ROS Statement: Those systems with pertinent positive or pertinent negative responses have been documented in the HPI. ROS Other: All systems not noted in ROS Statement are negative. Past Medical History Past Medical History: Diabetes Mellitus, GERD/Reflux, Hyperlipidemia, Hypertension Additional Past Medical History / Comment(s): Multiple vitreous hemorrhages, rt cataract, IDDM, pt stated he thinks he had a pne vaccine but field underwriter unable to verify date at time of this admit History of Any Multi-Drug Resistant Organisms: None Reported Past Surgical History: Orthopedic Surgery Additional Past Surgical History / Comment(s): Laser eye surgery;lt eye vitrectomy, lt cataract, hip surgery-[address] Past Anesthesia/Blood Transfusion Reactions: No Reported Reaction Past Psychological History: No Psychological Hx Reported Smoking Status: Current every day smoker Past Alcohol Use History: None Reported Past Drug Use History: None Reported - Past Family History Father Family Medical History: No Reported History Mother Family Medical History: Liver Disease Additional Family Medical History / Comment(s): alcoholic cirrhosis of the liver- General Exam Limitations: no limitations General appearance: alert, in no apparent distress Head exam: Present: atraumatic, normocephalic, normal inspection Eye exam: Present: PERRL, EOMI, conjunctival injection (Right), other (Patient for relief of symptoms with proparacaine eyedrops, large uptake in the 12 to 9 o'clock position. No foreign body noted). Absent: normal appearance, scleral icterus, periorbital swelling ENT exam: Present: normal exam, normal oropharynx, mucous membranes moist, TM's normal bilaterally Neck exam: Present: normal inspection. Absent: tenderness, meningismus, lymphadenopathy Respiratory exam: Present: normal lung sounds bilaterally. Absent: respiratory distress, wheezes, rales, rhonchi, stridor Cardiovascular Exam: Present: regular rate, normal rhythm, normal heart sounds. Absent: systolic murmur, diastolic murmur, rubs, gallop, clicks Course Vital Signs 12/30/19 07:40 Temperature 98.4 F Pulse Rate 91 Respiratory 16 Rate Blood Pressure 173/108 O2 Sat by Pulse 99 Oximetry Medical Decision Making - Medical Decision Making 39-year-old male presented for right eye irritation patient has a large corneal abrasion. Patient was started on Tobrex eyedrops. Patient's tetanus was updated. Patient will follow-up with his rn registry on Wednesday. Return parameters were discussed. Disposition Clinical Impression: Corneal abrasion, right Disposition: HOME SELF-CARE Condition: Stable Instructions (If sedation given, give patient instructions): Corneal Abrasion (ED) Additional Instructions: Use Tobrex eyedrops 1 drop every 4 hours for next 5 days please follow-up with your rn registry on Wednesday. Please return to the Emergency Department if symptoms worsen or any other concerns. Is patient prescribed a controlled substance at d/c from ED?: No Referrals: Rasta David MD [Primary Care Provider] - 1-2 days Time of Disposition: 08:03
== END 2019-12-30 08:16 | disposition home or self-care (01) ==
LOC: EC 07:39
DX: S05.01XA Injury of conjunctiva and corneal abrasion without foreign body, right eye, initial encounter (principal); E11.9 Type 2 diabetes mellitus without complications; E78.5 Hyperlipidemia, unspecified; K21.9 Gastro-esophageal reflux disease without esophagitis; F17.200 Nicotine dependence, unspecified, uncomplicated; I10 Essential (primary) hypertension; Z23 Encounter for immunization; Z79.899 Other long term (current) drug therapy; Z79.4 Long term (current) use of insulin; Z98.42 Cataract extraction status, left eye; Z91.030 Bee allergy status; X58.XXXA Exposure to other specified factors, initial encounter
CPT/HCPCS: 90471; 90715; 99283

== ENCOUNTER 2020-02-08 20:59 | Emergency (ER) | payer OTHER ==
[2020-02-08 21:07] VITALS: TEMP 98.4
[2020-02-08] MEDS ORDERED: PROPARACAINE 0.5% OPHTH DROPS 15 ML BTL LEFT EYE STA (21:13)
[2020-02-08] MEDS ORDERED: PROPARACAINE 0.5% OPHTH DROPS 15 ML BTL ONE (21:14)
[2020-02-08] MEDS ORDERED: FLUORESCEIN STRIPS 1 MG STRIP BOTH EYES ONE (21:24)
[2020-02-08] MEDS ORDERED: OFLOXACIN 0.3% OPHTH DROPS 5 ML BOTTLE LEFT EYE STA (21:59)
--- NOTE | 2020-02-08 22:14 | ED ---
Skin/Abscess/FB HPI - General Chief complaint: Skin/Abscess/Foreign Body Stated complaint: Metal in eye Time Seen by Provider: 02/08/20 21:23 Source: patient, RN notes reviewed, old records reviewed Mode of arrival: ambulatory Limitations: no limitations - History of Present Illness Initial comments: 3-year-old male presents emergency room today for complaints of left eye irritation. Patient believes that he may have no other foreign body within the eye. 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 Denies any significant change in visual acuity. He does wear glasses. Patient reports he did have an abrasion over the right eye. Weeks ago the head. With ophthalmology. She reports that that is now healed. - Related Data Home Medications Medication Instructions Recorded Confirmed Gabapentin 800 mg PO QID 07/16/15 10/11/18 Benazepril HCl 40 mg PO DAILY 06/24/16 10/11/18 Insulin Glargine [Lantus] 60 unit SQ DAILY 06/24/16 10/11/18 Atorvastatin [Lipitor] 80 mg PO DAILY 08/12/16 10/11/18 Omeprazole [PriLOSEC] 20 mg PO BID 08/12/16 10/11/18 traMADol HCL [Ultram] 50 mg PO BID 10/29/17 10/11/18 Insulin Lispro [Admelog] See Protocol SQ AC-TID 10/11/18 10/11/18 Previous Rx's Medication Instructions Recorded Amoxicillin/Potassium Clav 1 tab PO Q12HR #20 tab 11/07/18 [Augmentin 875-125 Tablet] Allergies Allergy/AdvReac Type Severity Reaction Status Date / Time venom-honey bee Allergy Unknown Verified 12/30/19 07:43 [bee venom (honey bee)] Review of Systems ROS Statement: Those systems with pertinent positive or pertinent negative responses have been documented in the HPI. ROS Other: All systems not noted in ROS Statement are negative. Past Medical History Past Medical History: Diabetes Mellitus, GERD/Reflux, Hyperlipidemia, Hypertension Additional Past Medical History / Comment(s): Multiple vitreous hemorrhages, rt cataract, IDDM, pt stated he thinks he had a pne vaccine but assembly instructions writer unable to verify date at time of this admit History of Any Multi-Drug Resistant Organisms: None Reported Past Surgical History: Orthopedic Surgery Additional Past Surgical History / Comment(s): Laser eye surgery;lt eye vitrectomy, lt cataract, hip surgery-[address] Past Anesthesia/Blood Transfusion Reactions: No Reported Reaction Past Psychological History: No Psychological Hx Reported Smoking Status: Current every day smoker Past Alcohol Use History: None Reported Past Drug Use History: None Reported - Past Family History Father Family Medical History: No Reported History Mother Family Medical History: Liver Disease Additional Family Medical History / Comment(s): alcoholic cirrhosis of the liver- General Exam - General Exam Comments Initial Comments: Well-appearing 39-year-old male. No distress. Limitations: no limitations Head exam: Present: atraumatic, normocephalic, normal inspection Eye exam: Present: normal appearance, PERRL, EOMI, conjunctival injection (Left), other (Fluorescein eye exam was performed shows no retained foreign body or evidence of abrasion bilateral eyes. He does have left eye conjunctival injection.). Absent: scleral icterus, periorbital swelling ENT exam: Present: normal exam, mucous membranes moist Neck exam: Present: tenderness Respiratory exam: Present: normal lung sounds bilaterally. Absent: respiratory distress, wheezes, rales, rhonchi, stridor Cardiovascular Exam: Present: regular rate, normal rhythm, normal heart sounds. Absent: systolic murmur, diastolic murmur, rubs, gallop, clicks Extremities exam: Present: normal inspection, full ROM, normal capillary refill. Absent: tenderness, pedal edema, joint swelling, calf tenderness Back exam: Present: normal inspection Neurological exam: Present: alert, oriented X3, CN II-XII intact Course Vital Signs 02/08/20 02/08/20 21:03 22:29 Temperature 98.4 F Pulse Rate 120 H 101 H Respiratory 18 16 Rate Blood Pressure 140/89 121/74 O2 Sat by Pulse 97 Oximetry Medical Decision Making - Medical Decision Making 3-year-old female presents to the ER today for evaluation for left eye irritation possible foreign body. On fluorescein eye exam he has no signs of retained foreign body. I did sweep underneath the eyelids with a moistened Q- tip after 2 times he reports that this is now improved and he has no sensation of foreign body within the eye. I did not see any foreign body that I did remove but discussed may be an eyelash that was irritating the eye. Patient was reevaluated after numbing of Effect of proparacaine wore off, and he states he has no further pain. I did discuss the short course of antibiotics for prophylaxis for infection due to multiple risks of rubbing his eye at work and due to injection in ED. I discussed return parameters and ophthalmology follow- up if symptoms continue to persist. Disposition Clinical Impression: Eye foreign body, Left eye pain Disposition: HOME SELF-CARE Condition: Good Instructions (If sedation given, give patient instructions): Eye Foreign Body (ED) Additional Instructions: Patient can apply the antibiotic drops 3-4 times a day for the next few days. If symptoms worse she can follow-up with cold mill inspector. Return to ED if any alarming signs or symptoms occur. Is patient prescribed a controlled substance at d/c from ED?: No Referrals: Rasta David MD [Primary Care Provider] - 1-2 days Christel Barger MD [STAFF PHYSICIAN] - 1-2 days Time of Disposition: 22:14
[2020-02-08 22:30] VITALS: BP 121/74; PULSE 101; RESP 16
== END 2020-02-08 22:29 | disposition home or self-care (01) ==
LOC: EC 20:59
DX: T15.90XA Foreign body on external eye, part unspecified, unspecified eye, initial encounter (principal); H57.12 Ocular pain, left eye; I10 Essential (primary) hypertension; K21.9 Gastro-esophageal reflux disease without esophagitis; E78.5 Hyperlipidemia, unspecified; E11.36 Type 2 diabetes mellitus with diabetic cataract; H26.9 Unspecified cataract; F17.200 Nicotine dependence, unspecified, uncomplicated; Z79.4 Long term (current) use of insulin; Z79.899 Other long term (current) drug therapy; Z91.030 Bee allergy status; X58.XXXA Exposure to other specified factors, initial encounter; Y92.009 Unspecified place in unspecified non-institutional (private) residence as the place of occurrence of the external cause; Y93.89 Activity, other specified
CPT/HCPCS: 99283

== ENCOUNTER 2020-03-29 10:25 | Day surgery (SDC) | payer OTHER ==
[2020-03-26 15:52] VITALS: BMI 31.0
--- NOTE | 2020-03-28 10:25 | HP ---
HISTORY AND PHYSICAL CHIEF COMPLAINT: Right hand pain and numbness. 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 He notes pain and numbness at night and with use. He also notes weakness with gripping and grasping. He has had previous injections and in addition has tried medications without much relief. PAST MEDICAL HISTORY: Significant for insulin-dependent diabetes with neuropathy along with hypertension. CURRENT MEDICATIONS: 1. Atorvastatin. 2. Gabapentin. 3. Insulin. 4. Hydrocodone. 5. Benazepril. ALLERGIES: He denies drug allergies. FAMILY HISTORY: Significant for liver disease. SOCIAL HISTORY: Significant for 1/2 pack per day tobacco use. REVIEW OF SYSTEMS: Sixteen-point review of systems otherwise reviewed and is noncontributory. PHYSICAL EXAMINATION: On examination, the patient is approximately 5 feet, 9 inches, 208 pounds of endomorphic habitus. HEENT exam is nonfocal. Neck is supple. He is nontender about the right shoulder and elbow. On examination of right wrist, he has a positive Tinel's over the carpal canal. Light touch is diminished in the thumb, index, middle, and ring fingers. Adductor pollicis brevis strength is 5/5. Intrinsic strength is 5/5. EMG report right upper extremity from 2018 shows right median motor latency of the carpal canal 7.8, sensory latency non recordable. IMPRESSION: Right carpal tunnel syndrome-symptomatic. RECOMMENDATIONS: I talked to the patient at length regarding his condition and treatment options. At this point, he is quite limited with pain and weakness despite previous conservative measures. After thorough discussion, he opts to proceed with surgery. We will plan to proceed with right carpal tunnel release utilizing local anesthetic and IV sedation. We will likely perform that as an outpatient procedure. Risks and benefits were discussed at length in layman's terms. MMODL / IJN: [id number] /
[~2020-03-29 10:25] MED LIST: DEXAMETHASONE SOD PHOSPHATE 4 MG/ML 1 ML VIAL IV ONE; HYDROmorphone 0.5 MG/0.5 ML SYRINGE IVP PRN; LACTATED RINGERS 1,000 ML IV SCH; LIDOCAINE 1% (10MG/ML) FOR IV START INTRADERMA PRN; MIDAZOLAM 2 MG/2 ML VIAL IV PRN; ONDANSETRON 4 MG/2 ML VIAL IVP ONE
[2020-03-29 11:13] VITALS: TEMP 97.8
[2020-03-29] MEDS ORDERED: LIDOCAINE 1% (10MG/ML) FOR IV START INTRADERMA ONE (11:21)
[2020-03-29] MEDS ORDERED: INSULIN ASPART (NovoLOG) 100 UNIT/ML VIAL SQ ONE (11:26)
[2020-03-29 11:31] LABS: Glucose,Whole Blood 267 mg/dL (75-99)
[2020-03-29] MEDS ORDERED: PROPOFOL 10 MG/ML 20 ML VIAL IV ONE (11:32)
[2020-03-29] MEDS ORDERED: MIDAZOLAM 2 MG/2 ML VIAL ONE (11:32)
[2020-03-29] MEDS ORDERED: fentaNYL (PF) 50 MCG/ML 2 ML AMP ONE (11:32)
[2020-03-29] MEDS ORDERED: BUPIVACAINE (PF) 0.25% 30 ML VIAL SQ ONE (11:32)
--- NOTE | 2020-03-29 12:01 | P.OP ---
Date of Procedure: 03/29/20 Preoperative Diagnosis: Right carpal tunnel syndromesymptomatic Postoperative Diagnosis: Same Procedure(s) Performed: Right carpal tunnel release Anesthesia: MAC, local Surgeon: Fortunato Nelson Estimated Blood Loss (ml): 1 Pathology: none sent Condition: stable Disposition: PACU Indications for Procedure: The patient's a 39-year-old male presents with progressive right hand pain and numbness for several years despite conservative measures. Clinically and by EMG he was noted have significant carpal tunnel syndrome. A discussion the risks and benefits of operative intervention versus continued conservative measures was made with patient. He opted to proceed with surgery. Operative risks to include infection, neurovascular injury, development of blood clots, possible incomplete resolution of symptoms, possible recurrence, possible development of reflex sympathetic dystrophy and need for subsequent procedures was discussed. Informed consent was obtained. Operative Findings: As below Description of Procedure: The patient was brought to the operating room, and after induction of IV sedation the right upper extremity was prepped and draped in normal fashion. The proposed incision site was outlined skin marker in line with the radial aspect the fourth ray extending from the volar wrist crease distally 2-1/2 cm. One quarter percent plain Marcaine was injected into the proposed incision site. 9 mL was utilized. The tourniquet was inflated to 250 mmHg. The skin incision was then made. The skin was incised sharply. Subcutaneous tissues were divided sharply the superficial palmar fascia was identified and split in line with the skin incision. The transverse carpal ligament was identified and transected under direct visualization distally to level the palmar fat pad. Proximal was taken level of the volar wrist crease. A plane above and below the transverse carpal ligament was then bluntly developed with tenotomies. The confluence of the distal forearm fascia and the transverse carpal ligament was then transected under direct visualization proximally with the tines pointed in the ulnar direction. I felt this was adequate proximal release. Neural lysis was not performed. The wound was irrigated with normal saline. Electrocautery was used for hemostasis. The skin was reapproximated with simple 3-0 nylon sutures. A sterile dressing was applied. The tourniquet was deflated with less than 15 minutes total tourniquet time. Patient was awoken from sedation and transferred to the recovery room in good condition. Blood loss was estimated 1 mL. No complications were incurred. Sponge and needle counts were correct at the end the case.
[2020-03-29 12:26] VITALS: RESP 18
[2020-03-29 12:31] LABS: Glucose,Whole Blood 211 mg/dL (75-99)
[2020-03-29 12:34] VITALS: BP 103/68; PULSE 99
== END 2020-03-29 12:47 | disposition home or self-care (01) ==
LOC: OR 10:25
PROVIDERS: ATTEND Orthopaedic Surgery
DX: G56.01 Carpal tunnel syndrome, right upper limb (principal); J44.9 Chronic obstructive pulmonary disease, unspecified; F17.210 Nicotine dependence, cigarettes, uncomplicated; I10 Essential (primary) hypertension; E78.5 Hyperlipidemia, unspecified; E10.42 Type 1 diabetes mellitus with diabetic polyneuropathy; Z91.030 Bee allergy status; Z98.890 Other specified postprocedural states; Z98.49 Cataract extraction status, unspecified eye; Z87.81 Personal history of (healed) traumatic fracture; Z79.4 Long term (current) use of insulin; Z79.899 Other long term (current) drug therapy
CPT/HCPCS: 64721; J2250; J1100; J0690; J2405; J3010; J2704

== ENCOUNTER 2021-12-23 18:16 | Emergency (ER) | payer OTHER ==
[2021-12-23] MEDS ORDERED: DEXTROSE 50% SYRINGE 50 ML IVP STA (18:26)
[2021-12-23 18:27] LABS: Glucose,Whole Blood 35 mg/dL (70-110)
--- NOTE | 2021-12-23 19:03 | ED ---
General Adult HPI - General Chief complaint: Recheck/Abnormal Lab/Rx Stated complaint: Hypoglycemia Time Seen by Provider: 12/23/21 18:20 Source: patient, EMS, RN notes reviewed, old records reviewed Mode of arrival: ambulatory Limitations: altered mental status - History of Present Illness Initial comments: 41-year-old male presenting with hypoglycemia. Patient was found in his vehicle, in the field, no signs of injury, patient was confused, found to have a blood sugar of 30. His given glucose by paramedics and transported. Patient had become alert but then again began to become more lethargic. Blood sugar checked in the emergency Department is 35. He is given supplemental IV dextrose. Blood sugar improved and the patient was able to state that he took his dinner insulin but did not eat yet. He is a type I diabetic. He denies any pain complaints. Patient does not want further evaluation the emergency department. He wishes to be discharged. - Related Data Home Medications Medication Instructions Recorded Confirmed Gabapentin 800 mg PO QID 07/16/15 03/29/20 Benazepril HCl 40 mg PO DAILY 06/24/16 03/29/20 Insulin Glargine [Lantus Vial] 55 unit SQ AC-BRKFST 06/24/16 03/29/20 Atorvastatin [Lipitor] 80 mg PO HS 08/12/16 03/29/20 Omeprazole [PriLOSEC] 20 mg PO DAILY 08/12/16 03/29/20 EPINEPHrine (Auto Inject) [Epipen] 0.3 mg IM ONCE PRN 03/26/20 03/29/20 Ergocalciferol (Vitamin D2) 3,750 mcg PO Q30D 03/26/20 03/29/20 [Vitamin D2 (50,000 Iu)] Glucagon Emergency Kit 1 mg IM ONCE PRN 03/26/20 03/29/20 HYDROcodone/APAP 5-325MG [Gilbert 1 tab PO BID PRN 03/26/20 03/29/20 5-325] INSULIN LISPRO (humaLOG) [humaLOG] 12 units INJ AC-TID 03/26/20 03/29/20 Ibuprofen [Motrin] 800 mg PO Q6H PRN 03/26/20 03/29/20 Phentermine HCl [Adipex-P] 37.5 mg PO DAILY 03/26/20 03/29/20 Sildenafil Citrate [Sildenafil] 20 mg PO DIRECTED PRN 03/26/20 03/29/20 Allergies Allergy/AdvReac Type Severity Reaction Status Date / Time venom-honey bee Allergy Anaphylaxis Verified 12/23/21 18:27 [bee venom (honey bee)] Review of Systems ROS Statement: Those systems with pertinent positive or pertinent negative responses have been documented in the HPI. ROS Other: All systems not noted in ROS Statement are negative. Past Medical History Past Medical History: Diabetes Mellitus, GERD/Reflux, Hyperlipidemia, Hypertension, Musculoskeletal Disorder Additional Past Medical History / Comment(s): Multiple vitreous hemorrhages, diabetic retinopathy, rt cataract, IDDM. Back prob, rotator cuff prob. Bilat CTS History of Any Multi-Drug Resistant Organisms: None Reported Past Surgical History: Orthopedic Surgery Additional Past Surgical History / Comment(s): Laser eye surgery; lt eye vitrectomy, lt cataract; ORIF Lt hip surgery-[address] Past Anesthesia/Blood Transfusion Reactions: No Reported Reaction Past Psychological History: No Psychological Hx Reported Smoking Status: Current every day smoker - Past Family History Father Family Medical History: No Reported History Mother Family Medical History: Liver Disease Additional Family Medical History / Comment(s): alcoholic cirrhosis of the liver- General Exam Limitations: altered mental status General appearance: in no apparent distress, lethargic Head exam: Present: atraumatic, normocephalic Eye exam: Present: normal appearance, PERRL ENT exam: Present: normal exam Neck exam: Present: normal inspection. Absent: tenderness, meningismus Respiratory exam: Present: normal lung sounds bilaterally. Absent: respiratory distress, wheezes Cardiovascular Exam: Present: regular rate, normal rhythm Extremities exam: Present: normal inspection, normal capillary refill Neurological exam: Absent: alert, oriented X3, motor sensory deficit Skin exam: Present: diaphoretic Course Vital Signs 12/23/21 18:18 Temperature 97.5 F L Pulse Rate 96 Respiratory 18 Rate Blood Pressure 147/81 O2 Sat by Pulse 100 Oximetry Medical Decision Making - Medical Decision Making 41 yo presenting with an episode of hypoglycemia. Patient states he did not eat today and he did take his insulin. Patient is alert and oriented and does not want further testing. He wants to be discharged. He states he will monitor his blood glucose closely at home and will eat more regularly. Repeat blood sugar 109. - Lab Data Lab Results 12/23/21 Range/Units 18:26 POC Glucose (mg/dL) 35 L (70-110) mg/dL POC Glu Biochemistry Professor ID Nuris Roca Disposition Clinical Impression: Hypoglycemia Disposition: HOME SELF-CARE Condition: Fair Instructions (If sedation given, give patient instructions): Hypoglycemia in a Person with Diabetes (ED) Is patient prescribed a controlled substance at d/c from ED?: No Referrals: Rasta David MD [Primary Care Provider] - 1-2 days Time of Disposition: 19:46
[2021-12-23 19:40] LABS: Glucose,Whole Blood 109 mg/dL (70-110)
[2021-12-23 19:56] VITALS: BP 153/93; PULSE 114; RESP 16; TEMP 97.9
== END 2021-12-23 20:10 | disposition home or self-care (01) ==
LOC: EC 18:16
DX: E11.649 Type 2 diabetes mellitus with hypoglycemia without coma (principal); I10 Essential (primary) hypertension; K21.9 Gastro-esophageal reflux disease without esophagitis; E78.5 Hyperlipidemia, unspecified; F17.200 Nicotine dependence, unspecified, uncomplicated; Z79.811 Long term (current) use of aromatase inhibitors; Z79.02 Long term (current) use of antithrombotics/antiplatelets; Z79.83 Long term (current) use of bisphosphonates; Z79.4 Long term (current) use of insulin; Z91.038 Other insect allergy status
CPT/HCPCS: 36415; 96374; 99285

== ENCOUNTER 2022-05-21 18:40 | Emergency (ER) | payer OTHER ==
[2022-05-21 18:54] VITALS: BP 183/82; PULSE 116; RESP 16; TEMP 97.3
[2022-05-21 18:58] LABS: Glucose,Whole Blood 32 mg/dL (70-110)
[2022-05-21] MEDS ORDERED: DEXTROSE 50% SYRINGE 50 ML IVP STA (19:06)
[2022-05-21 19:20] LABS: Glucose,Whole Blood 38 mg/dL (70-110)
[2022-05-21 19:20] LABS: Glucose,Whole Blood 105 mg/dL (70-110)
[2022-05-21 19:22] LABS: Basophils # (A) 0.1 k/uL (0-0.2); Basophils % (A) 1 %; Eosinophils % (A) 0 %; HCT 46.9 % (39.0-53.0); HGB 16.4 gm/dL (13.0-17.5); Lymphocytes # (A) 4.9 k/uL (1.0-4.8); Lymphocytes % (A) 35 %; MCH 31.8 pg (25.0-35.0); MCHC 34.9 g/dL (31.0-37.0); MCV 91.1 fL (80.0-100.0); Mean Platelet Volume 8.3; Monocytes # (A) 0.8 k/uL (0-1.0); Monocytes % (A) 6 %; Neutrophils # (A) 7.6 k/uL (1.3-7.7); Neutrophils % (A) 54 %; Platelet Count 403 k/uL (150-450); RBC 5.14 m/uL (4.30-5.90); RDW 13.3 % (11.5-15.5)
--- NOTE | 2022-05-21 19:27 | ED ---
Altered Mental Status HPI - General Chief Complaint: Altered Mental Status Stated Complaint: Mental Health/Suicidal Thoughts Time Seen by Provider: 05/21/22 19:00 Source: patient, RN notes reviewed Mode of arrival: wheelchair Limitations: altered mental status - History of Present Illness Initial Comments: 41-year-old male with a history of diabetes GERD hypertension who is a smoker apparently found a local [employer] restaurant unresponsive and brought here by private vehicle and dropped off at the triage area. He was noted have what appeared be a tonic-clonic seizure briefly Accu-Chek was low indicating that he was hypoglycemic. Patient brought back to the treatment area. MD Complaint: altered mental status, decreased responsiveness - Related Data Home Medications Medication Instructions Recorded Confirmed Gabapentin 800 mg PO QID 07/16/15 03/29/20 Benazepril HCl 40 mg PO DAILY 06/24/16 03/29/20 Insulin Glargine [Lantus Vial] 55 unit SQ AC-BRKFST 06/24/16 03/29/20 Atorvastatin [Lipitor] 80 mg PO HS 08/12/16 03/29/20 Omeprazole [PriLOSEC] 20 mg PO DAILY 08/12/16 03/29/20 EPINEPHrine (Auto Inject) [Epipen] 0.3 mg IM ONCE PRN 03/26/20 03/29/20 Ergocalciferol (Vitamin D2) 3,750 mcg PO Q30D 03/26/20 03/29/20 [Vitamin D2 (50,000 Iu)] Glucagon Emergency Kit 1 mg IM ONCE PRN 03/26/20 03/29/20 HYDROcodone/APAP 5-325MG [[place] 1 tab PO BID PRN 03/26/20 03/29/20 5-325] INSULIN LISPRO (humaLOG) [humaLOG] 12 units INJ AC-TID 03/26/20 03/29/20 Ibuprofen [Motrin] 800 mg PO Q6H PRN 03/26/20 03/29/20 Phentermine HCl [Adipex-P] 37.5 mg PO DAILY 03/26/20 03/29/20 Sildenafil Citrate [Sildenafil] 20 mg PO DIRECTED PRN 03/26/20 03/29/20 Allergies Allergy/AdvReac Type Severity Reaction Status Date / Time venom-honey bee Allergy Anaphylaxis Verified 05/21/22 18:54 [bee venom (honey bee)] Review of Systems ROS Statement: Those systems with pertinent positive or pertinent negative responses have been documented in the HPI. ROS Other: All systems not noted in ROS Statement are negative. Limitations: ROS unobtainable due to patients medical condition Past Medical History Past Medical History: Diabetes Mellitus, GERD/Reflux, Hyperlipidemia, Hypertension, Musculoskeletal Disorder Additional Past Medical History / Comment(s): Multiple vitreous hemorrhages, diabetic retinopathy, rt cataract, IDDM. Back prob, rotator cuff prob. Bilat CTS History of Any Multi-Drug Resistant Organisms: None Reported Past Surgical History: Orthopedic Surgery Additional Past Surgical History / Comment(s): Laser eye surgery; lt eye vitrectomy, lt cataract; ORIF Lt hip surgery-[address] Past Anesthesia/Blood Transfusion Reactions: No Reported Reaction Past Psychological History: No Psychological Hx Reported Smoking Status: Current every day smoker - Past Family History Father Family Medical History: No Reported History Mother Family Medical History: Liver Disease Additional Family Medical History / Comment(s): alcoholic cirrhosis of the liver- General Exam - General Exam Comments Initial Comments: Is a well-developed unresponsive male no evidence of any trauma Limitations: altered mental status General appearance: obtunded Head exam: Present: atraumatic, normocephalic, normal inspection Eye exam: Present: normal appearance, PERRL, EOMI. Absent: scleral icterus, conjunctival injection, periorbital swelling ENT exam: Present: mucous membranes dry Neck exam: Present: normal inspection, full ROM (No surgery or bruits), other. Absent: tenderness Respiratory exam: Present: normal lung sounds bilaterally. Absent: respiratory distress, wheezes, rales, rhonchi, stridor Cardiovascular Exam: Present: regular rate, normal rhythm, tachycardia, normal heart sounds. Absent: systolic murmur, diastolic murmur, rubs, gallop, clicks GI/Abdominal exam: Present: soft, normal bowel sounds. Absent: distended, tenderness, guarding, rebound, rigid Extremities exam: Present: normal inspection, full ROM, normal capillary refill. Absent: tenderness, pedal edema, joint swelling, calf tenderness Back exam: Present: normal inspection Neurological exam: Present: alert, altered, CN II-XII intact. Absent: motor se nsory deficit Psychiatric exam: Present: normal affect, normal mood Skin exam: Present: warm, dry, intact, normal color. Absent: rash Course Vital Signs 05/21/22 18:49 Temperature 97.3 F L Pulse Rate 116 H Respiratory 16 Rate Blood Pressure 183/82 O2 Sat by Pulse 99 Oximetry - Reevaluation(s) Reevaluation #1: 05/21/22 19:27 Patient was given an amp of D50 he did quickly become arousable. Medical Decision Making - Medical Decision Making The patient initially was given IV glucose for hypoglycemia he didn't wake after this happened he had no deficits seem reasonable and call him. He later became combative and agitated and wanted to leave he did demonstrate decision making capacity the left AGAINST MEDICAL ADVICEWas pt. sent in by a medical professional or institution (, [facility], [facility] [employer], urgent care, hospital, or custodial...) When possible be specific @ -[No] Did you speak to anyone other than the patient for history (EMS, parent, family, police, friend...)? What history was obtained from this source @ -[No] Did you review nursing and triage notes (agree or disagree)? Why? @ -[I reviewed and agree with nursing and triage notes] Were old charts reviewed (outside hosp., previous admission, EMS record, old EKG, old radiological studies, urgent care reports/EKG's, custodial records)? Report findings @ -[No old charts were reviewed] Differential Diagnosis (chest pain, altered mental status, abdominal pain women, abdominal pain men, vaginal bleeding, weakness, fever, dyspnea, syncope, headache, dizziness, GI bleed, back pain, seizure, CVA, palpatations, mental health, musculoskeletal)? @ -[Altered mental status, hypoglycemia] EKG interpreted by me (3pts min.). @ -[Not done] X-rays interpreted by me (1pt min.). @ -[None done] CT interpreted by me (1pt min.). @ -[None done] U/S interpreted by me (1pt. min.). @ -[None done] What testing was considered but not performed or refused? (CT, X-rays, U/S, l abs)? Why? @ -[None] What meds were considered but not given or refused? Why? @ -[None] Did you discuss the management of the patient with other professionals (professionals i.e. , PA, HEAVY FORGER, lab, RT, psych nurse, social and political studies professor, stores laborer, teacher, privacy officer, upper caser)? Give summary @ -[No] Was smoking cessation discussed for >3mins.? @ -[No] Was critical care preformed (if so, how long)? @ -[No] Were there social determinants of health that impacted care today? How? (Homelessness, low income, unemployed, alcoholism, drug addiction, transportation, low edu. Level, literacy, decrease access to med. care, fpc, rehab)? @ -[No] Was there de-escalation of care discussed even if they declined (Discuss DNR or withdrawal of care, Hospice)? DNR status @ -[No] What co-morbidities impacted this encounter? (DM, HTN, Smoking, COPD, CAD, Cancer, CVA, ARF, Chemo, Hep., AIDS, mental health diagnosis, sleep apnea, morbid obesity)? @ -[Smoking, diabetes] Was patient admitted / discharged? Hospital course, mention meds given and route, prescriptions, significant lab abnormalities, going to OR and other pertinent info. @ -[hospital course] the patient left AGAINST MEDICAL ADVICE prior to the workup being completed Undiagnosed new problem with uncertain prognosis? @ -[No] Drug Therapy requiring intensive monitoring for toxicity (Heparin, Nitro, Insulin, Cardizem)? @ -[No] Were any procedures done? @ -[No] Diagnosis/symptom? @ -[Hypoglycemia] Acute, or Chronic, or Acute on Chronic? @ -[Acute] Uncomplicated (without systemic symptoms) or Complicated (systemic symptoms)? @ -[default] Side effects of treatment? @ -[No] Exacerbation, Progression, or Severe Exacerbation? @ -[No] Poses a threat to life or bodily function? How? (Chest pain, [place], ME, pneumonia, PE, COPD, DKA, ARF, appy, cholecystitis, CVA, Diverticulitis, Homicidal, Suicidal, threat to staff... and all critical care pts) @ -[No] - Lab Data Result diagrams: 05/21/22 19:10 05/21/22 19:10 Lab Results 05/21/22 05/21/22 05/21/22 Range/Units 18:55 19:03 19:09 WBC (3.8-10.6) k/uL RBC (4.30-5.90) m/uL Hgb (13.0-17.5) gm/dL Hct (39.0-53.0) % MCV (80.0-100.0) fL MCH (25.0-35.0) pg MCHC (31.0-37.0) g/dL RDW (11.5-15.5) % Plt Count (150-450) k/uL MPV Neutrophils % % Lymphocytes % % Monocytes % % Eosinophils % % Basophils % % Neutrophils # (1.3-7.7) k/uL Lymphocytes # (1.0-4.8) k/uL Monocytes # (0-1.0) k/uL Eosinophils # (0-0.7) k/uL Basophils # (0-0.2) k/uL Sodium (137-145) mmol/L Potassium (3.5-5.1) mmol/L Chloride (98-107) mmol/L Carbon Dioxide (22-30) mmol/L Anion Gap mmol/L BUN (9-20) mg/dL Creatinine (0.66-1.25) mg/dL Est GFR (CKD-EPI)AfAm (>60 ml/min/1.73 sqM) Est GFR (CKD-EPI)NonAf (>60 ml/min/1.73 sqM) Glucose (74-99) mg/dL POC Glucose (mg/dL) 32 L 38 L 105 (70-110) mg/dL POC Glu Scrap Yard Worker ID Jerri, Candice Tarango, Priya Tarango, Priya Calcium (8.4-10.2) mg/dL Magnesium (1.6-2.3) mg/dL Total Bilirubin (0.2-1.3) mg/dL AST (17-59) U/L ALT (4-49) U/L Alkaline Phosphatase (38-126) U/L Total Protein (6.3-8.2) g/dL Albumin (3.5-5.0) g/dL Salicylates mg/dL Acetaminophen ug/mL Serum Alcohol mg/dL 05/21/22 05/21/22 Range/Units 19:10 19:10 WBC 14.0 H (3.8-10.6) k/uL RBC 5.14 (4.30-5.90) m/uL Hgb 16.4 (13.0-17.5) gm/dL Hct 46.9 (39.0-53.0) % MCV 91.1 (80.0-100.0) fL MCH 31.8 (25.0-35.0) pg MCHC 34.9 (31.0-37.0) g/dL RDW 13.3 (11.5-15.5) % Plt Count 403 (150-450) k/uL MPV 8.3 Neutrophils % 54 % Lymphocytes % 35 % Monocytes % 6 % Eosinophils % 0 % Basophils % 1 % Neutrophils # 7.6 (1.3-7.7) k/uL Lymphocytes # 4.9 H (1.0-4.8) k/uL Monocytes # 0.8 (0-1.0) k/uL Eosinophils # 0.0 (0-0.7) k/uL Basophils # 0.1 (0-0.2) k/uL Sodium 134 L (137-145) mmol/L Potassium 4.0 (3.5-5.1) mmol/L Chloride 98 (98-107) mmol/L Carbon Dioxide 22 (22-30) mmol/L Anion Gap 14 mmol/L BUN 15 (9-20) mg/dL Creatinine 0.79 (0.66-1.25) mg/dL Est GFR (CKD-EPI)AfAm >90 (>60 ml/min/1.73 sqM) Est GFR (CKD-EPI)NonAf >90 (>60 ml/min/1.73 sqM) Glucose 257 H (74-99) mg/dL POC Glucose (mg/dL) (70-110) mg/dL POC Glu Scrap Yard Worker ID Calcium 9.5 (8.4-10.2) mg/dL Magnesium 2.0 (1.6-2.3) mg/dL Total Bilirubin 0.8 (0.2-1.3) mg/dL AST 39 (17-59) U/L ALT 38 (4-49) U/L Alkaline Phosphatase 75 (38-126) U/L Total Protein 7.7 (6.3-8.2) g/dL Albumin 4.8 (3.5-5.0) g/dL Salicylates <1.0 mg/dL Acetaminophen <10.0 ug/mL Serum Alcohol <10 mg/dL Disposition Clinical Impression: Hypoglycemia, Altered mental status Disposition: Left Against Medical Advice Condition: Stable Referrals: Rasta David MD [Primary Care Provider] - 1-2 days Decision Date: 05/21/22
[2022-05-21 19:29] LABS: ALT 38 U/L (4-49); Acetaminophen <10.0 ug/mL; African American GFR (CKD) >90 (>60 ml/min/1.73 sqM); Alcohol <10 mg/dL; Anion Gap 14 mmol/L; Blood Urea Nitrogen 15 mg/dL (9-20); Calcium 9.5 mg/dL (8.4-10.2); Carbon Dioxide 22 mmol/L (22-30); Chloride 98 mmol/L (98-107); Glucose 257 mg/dL (74-99); Non-African American GFR(CKD) >90 (>60 ml/min/1.73 sqM); Salicylate <1.0 mg/dL; Sodium 134 mmol/L (137-145); Total Bilirubin 0.8 mg/dL (0.2-1.3)
[2022-05-21 19:32] LABS: AST 39 U/L (17-59); Albumin 4.8 g/dL (3.5-5.0); Alkaline Phosphatase 75 U/L (38-126); Total Protein 7.7 g/dL (6.3-8.2)
[2022-05-21 19:39] LABS: INR 0.9 (<1.2); Partial Thromboplastin Time 20.8 sec (22.0-30.0); Prothrombin Time 9.4 sec (9.0-12.0)
== END 2022-05-21 19:31 | disposition left against medical advice (07) ==
LOC: EC 18:40
DX: E11.649 Type 2 diabetes mellitus with hypoglycemia without coma (principal); E11.319 Type 2 diabetes mellitus with unspecified diabetic retinopathy without macular edema; E11.36 Type 2 diabetes mellitus with diabetic cataract; H26.9 Unspecified cataract; I10 Essential (primary) hypertension; E78.5 Hyperlipidemia, unspecified; K21.9 Gastro-esophageal reflux disease without esophagitis; F17.200 Nicotine dependence, unspecified, uncomplicated; Z53.29 Procedure and treatment not carried out because of patient's decision for other reasons; Z91.030 Bee allergy status; Z79.899 Other long term (current) drug therapy; Z79.4 Long term (current) use of insulin
CPT/HCPCS: 36415; 80053; 83735; 84484; 85025; 85610; 85730; 80143; 80179; 99285; G0480; 80320